=== PATIENT | male | born 1990 | race African-American/Black ===

== ENCOUNTER 2019-10-28 20:52 | Emergency (ER) | payer OTHER ==
[~2019-10-28] VITALS: Ht 158 cm; Wt 68.0 kg
[2019-10-28] MEDS ORDERED: ONDANSETRON HCL/PF 4 MG/2 ML VIAL ONE (22:19)
[2019-10-28] MEDS ORDERED: ACETAMINOPHEN ES 500 MG TABLET ONE (22:20)
[2019-10-28] MEDS ORDERED: MORPHINE SULFATE INJ 4 MG/ML DISP.SYRIN ONE (22:20)
--- NOTE | 2019-10-28 22:20 | NUR ---
PT CAME TO ER BED 10 FOR C/O FLANK PAIN. PT STATES THAT THERE IS PAIN IN BOTH HIS FLANK WHEN HE WALKS AND URINATES. AAOX4. NO SOB. BREATHING EVENLY AND UNLABORED. NOT IN ANY DISTRESS. CONNECTED TO THE MONITOR.
[2019-10-28 22:29] LABS: BASOPHILS % (AUTO) 0.4 % (0.0-2.0); EOSINOPHILS % (AUTO) 6.6 % (0.0-6.0); HEMATOCRIT 42 % (39-51); HEMOGLOBIN 14.2 g/dL (13.5-17.5); LYMPHOCYTES # (AUTO) 1.8 /CMM (0.8-4.8); LYMPHOCYTES % (AUTO) 26.8 % (20.0-44.0); MEAN CORPUSCULAR HGB CONC 34 g/dl (31.0-36.0); MEAN CORPUSCULAR VOLUME 90 fL (80-96); MONOCYTES # (AUTO) 0.7 /CMM (0.1-1.30); MONOCYTES % (AUTO) 10.1 % (2.0-12.0); NEUTROPHILS # (AUTO) 3.7 /CMM (1.8-8.9); NEUTROPHILS % (AUTO) 56.1 % (43.0-81.0); PLATELET COUNT (AUTO) 275 /CMM (150-450); RED BLOOD CELL COUNT(AUTO) 4.65 MIL/uL (4.5-6.0); WHITE BLOOD COUNT (AUTO) 6.5 K/uL (4.3-11.0)
[2019-10-28] MEDS ORDERED: ONDANSETRON HCL/PF 4 MG/2 ML VIAL IVP ONE (22:30)
[2019-10-28] MEDS ORDERED: MORPHINE SULFATE INJ 2 MG/ML DISP.SYRIN IV ONE (22:30)
[2019-10-28] MEDS ORDERED: IV NS 0.9% 1,000 ML BAG IV ONE (22:30)
[2019-10-28] MEDS ORDERED: ACETAMINOPHEN ES 500 MG TABLET PO ONE (22:30)
[2019-10-28 22:36] LABS: CALCIUM, SERUM 8.3 mg/dL (8.5-10.1); CREATININE 1.7 mg/dL (0.6-1.3); POTASSIUM 3.3 mmol/L (3.5-5.1)
[2019-10-28 22:38] LABS: APPEARANCE,URINE Clear (CLEAR); BILIRUBIN,URINE Negative (NEGATIVE); BLOOD, URINE Moderate Ery/uL (NEGATIVE); COLOR,URINE Yellow (YELLOW); KETONES,URINE Negative (NEGATIVE); LEUKOCYTE ESTERASE ,URINE Negative (NEGATIVE); NITRITE, URINE Negative (NEGATIVE); PROTEIN,URINE 100 mg/dl (NEGATIVE); UGLUCOSE Negative (NEGATIVE); UROBILINOGEN,URINE 0.2 EU/dL (0.2)
--- NOTE | 2019-10-28 22:38 | NUR ---
patient being sent to ct via [facility]
--- NOTE | 2019-10-28 22:48 | NUR ---
PATIENT RETURNED FROM CT.
[2019-10-28 22:53] LABS: BACTERIA,URINE Few /HPF (None Seen); RBC,URINE 21-50 /HPF (0-2); SQUAMOUS EPITHELIAL CELL,UR Rare /HPF (None Seen)
[2019-10-29] MEDS ORDERED: CEFTRIAXONE 1 G in IV D5W 50 ML IV ONE ×2
[2019-10-29] MEDS ORDERED: CEFTRIAXONE 1GM BAG (ER ONLY) 50 ML IV ONE (00:25)
--- NOTE | 2019-10-29 00:45 | NUR ---
ATTEMPTED TO DISCHARGE PT, PT REFUSE TO GET UP FOR DISCHARGE. WILL REATTEMPT TO D/C PT IN 15MIN.
--- NOTE | 2019-10-29 01:16 | NUR ---
PT REMAINS TO REFUSE TO GET UP FOR DISCHARGE. WILL REATTEMPT IN ANOTHER 15MIN.
--- NOTE | 2019-10-29 01:58 | NUR ---
IV removed. Catheter intact and site benign. Pressure and 4x4 applied to site. No bleeding noted. ambulatory with a steady gait noted. Patient discharged to home in stable condition. Written and verbal after care instructions given. Patient verbalizes understanding of instruction. pt aaox4 no acute distress noted, resp even and unlabored. advice pt not to drive or operate any machinery due to pt was given narcotic medicine. pt verbalize understanding.
[2019-10-29 01:59] VITALS: BP 124/62
[2019-10-29] MEDS ORDERED: diphenhydrAMINE HCL 50 MG/ML VIAL ONE (21:35)
[2019-10-29] MEDS ORDERED: HALOPERIDOL LACTATE INJ 5 MG/ML VIAL ONE (21:35)
[2019-10-29] MEDS ORDERED: LORAZEPAM INJ 2 MG/ML VIAL ONE (21:36)
== END 2019-10-29 02:00 | disposition home or self-care (01) ==
LOC: ER 21:00
DX: N39.0 Urinary tract infection, site not specified (principal)
CPT/HCPCS: 36415; 74176; 80048; 81001; 85025; 87086; 96365; 96375; 99284; J0696 ×2; J1200; J1630; J2060; J2270; J2405; J7030; J7060; 81000-TC

== ENCOUNTER 2019-11-15 16:24 | Emergency (ER) | payer OTHER ==
[~2019-11-15] VITALS: Ht 157.5 cm; Wt 63.5 kg
--- NOTE | 2019-11-15 16:29 | NUR ---
CAME IN FOR LOWER BACK PAIN X 2 DAYS, HEMATURIA NOTED TODAY. 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
--- NOTE | 2019-11-15 16:55 | NUR ---
HELADIO DRISCOLL AT BEDSIDE
[2019-11-15] MEDS ORDERED: DEXAMETHASONE SOD PHOSPHATE 4 MG/ML VIAL IM ONE (17:00)
[2019-11-15] MEDS ORDERED: KETOROLAC TROMETHAMINE INJ 60 MG/2 ML VIAL IM ONE (17:00)
[2019-11-15] MEDS ORDERED: DEXAMETHASONE SOD PHOSPHATE 10 MG/ML VIAL ONE (17:05)
[2019-11-15] MEDS ORDERED: KETOROLAC TROMETHAMINE INJ 30 MG/ML VIAL ONE (17:05)
--- NOTE | 2019-11-15 17:12 | NUR ---
GREASER HELPER AT BEDSIDE
[2019-11-15 17:16] LABS: BASOPHILS # (AUTO) 0.1 /CMM (0.0-0.2); BASOPHILS % (AUTO) 0.7 % (0.0-2.0); EOSINOPHILS % (AUTO) 2.3 % (0.0-6.0); HEMATOCRIT 43 % (39-51); HEMOGLOBIN 14.3 g/dL (13.5-17.5); LYMPHOCYTES # (AUTO) 1.4 /CMM (0.8-4.8); LYMPHOCYTES % (AUTO) 13.2 % (20.0-44.0); MEAN CORPUSCULAR HGB CONC 33 g/dl (31.0-36.0); MEAN CORPUSCULAR VOLUME 90 fL (80-96); MONOCYTES % (AUTO) 8.8 % (2.0-12.0); NEUTROPHILS # (AUTO) 8.1 /CMM (1.8-8.9); PLATELET COUNT (AUTO) 250 /CMM (150-450); RED BLOOD CELL COUNT(AUTO) 4.74 MIL/uL (4.5-6.0); WHITE BLOOD COUNT (AUTO) 10.8 K/uL (4.3-11.0)
[2019-11-15 17:17] LABS: APPEARANCE,URINE Slightly Cloudy (CLEAR); BILIRUBIN,URINE Negative (NEGATIVE); BLOOD, URINE Large Ery/uL (NEGATIVE); COLOR,URINE Yellow (YELLOW); KETONES,URINE Trace (NEGATIVE); LEUKOCYTE ESTERASE ,URINE Negative (NEGATIVE); NITRITE, URINE Negative (NEGATIVE); PROTEIN,URINE >=300 mg/dl (NEGATIVE); UGLUCOSE Negative (NEGATIVE)
[2019-11-15 17:24] LABS: CREATININE 1.4 mg/dL (0.6-1.3); POTASSIUM 4.2 mmol/L (3.5-5.1)
[2019-11-15 17:34] LABS: BACTERIA,URINE Rare /HPF (None Seen); RBC,URINE 21-50 /HPF (0-2); WBC,URINE NONE SEEN /HPF (0-3)
--- NOTE | 2019-11-15 18:42 | NUR ---
PATIENT STATES "I'M SUICIDAL WITH PLANS TO JUMP OFF TRAFFIC PASS". Addendum: 11/15/19 at 1908 by VIET PATIENT STATES "I'M SUICIDAL WITH PLANS TO RUN INTO TRAFFIC AND JUMP OFF AN I-PASS".
[2019-11-15 19:09] LABS: ACETAMINOPHEN < 10 ug/ml (10-30); ALANINE AMINOTRANSFERASE 26 U/L (12-78); ALBUMIN 3.6 g/dL (3.4-5.0); ALCOHOL, BLOOD < 3 mg/dL (0-0); ALKALINE PHOSPHATASE 68 U/L (46-116); ASPARTATE AMINOTRANSFERASE 24 U/L (15-37); BILIRUBIN,DIRECT 0.1 mg/dL (0.0-0.2); BILIRUBIN,TOTAL 0.6 mg/dL (0.2-1.0); SALICYLATE 1.3 mg/dL (2.8-20.0); TOTAL PROTEIN, SERUM 7.4 g/dL (6.4-8.2)
--- NOTE | 2019-11-15 19:25 | NUR ---
REPORT GIVEN TO DIEGO FRIEDMAN FOR [facility]
--- NOTE | 2019-11-15 19:57 | NUR ---
PATIENT IS RESTING COMFORTABLY IN BED 10. NOT IN ANY DISTRESS. CONNECTED TO MONITOR. SITTER NEAR BEDSIDE. CALL LIGHT WITHIN REACH.
--- NOTE | 2019-11-16 01:47 | NUR ---
PT ACCEPTED TO [facility] BY DR FRANCO. # FOR REPORT [phone]. UNIT 1
--- NOTE | 2019-11-16 02:20 | NUR ---
[facility]. ETA 30-60 MIN.
--- NOTE | 2019-11-16 02:36 | NUR ---
report given to dain mcintosh for dl.
--- NOTE | 2019-11-16 03:10 | NUR ---
REPORT GIVEN TO [facility] TRANSPORT TEAM FOR [facility]. AND TRANSFER.
[2019-11-16 03:11] VITALS: BP 124/64
== END 2019-11-16 03:12 ==
LOC: ER 16:26
DX: R80.9 Proteinuria, unspecified (principal); M54.16 Radiculopathy, lumbar region; R31.9 Hematuria, unspecified; F15.10 Other stimulant abuse, uncomplicated; F12.10 Cannabis abuse, uncomplicated; M54.5 Low back pain; F32.9 Major depressive disorder, single episode, unspecified; Z04.6 Encounter for general psychiatric examination, requested by authority; Z87.442 Personal history of urinary calculi
CPT/HCPCS: 36415; 72110; 76770; 80048; 80076; 80305; 80307; 80329; 81001; 85025; 96372 ×2; 99284; G0480; J1100; J1885; 81000-TC

== ENCOUNTER 2020-02-21 20:42 | Emergency (ER) | payer OTHER ==
[~2020-02-21] VITALS: Ht 157.5 cm; Wt 72.6 kg
--- NOTE | 2020-02-21 21:46 | NUR ---
BIBSELF C/O SUICIDAL IDEATION WITH PLAN TO OVERDOSE ON PILLS. PT DENIES HI AT THIS TIME. PT AAOX4. CALM AND COOPERATIVE. VITAL SIGNS STABLE. RESPIRATIONS EVEN AND UNLABORED. SKIN INTACT. AMBULATORY WITH STEADY GAIT. NO ACUTE DISTRESS NOTED AT THIS TIME. PT PLACED IN GOWN, BELONGINGS COLLECTED AND PLACED IN PATIENT LOCKER. SITTER AT BEDSIDE. WILL CONTINUE TO MONITOR
--- NOTE | 2020-02-21 21:49 | NUR ---
PT CAME TO THE ED FOR SI W A PLAN TO OVERDOSE ON DRUGS. DENIES HI. PT PLACED ON SUICIDE PRECAUTIONS. NO ACUTE DISTRESS NOTED. 1:1 SITTER AT BEDSIDE FOR SAFETY
--- NOTE | 2020-02-21 21:51 | NUR ---
URINE SENT TO LAB
[2020-02-21 22:27] LABS: BASOPHILS # (AUTO) 0.1 /CMM (0.0-0.2); BASOPHILS % (AUTO) 1.3 % (0.0-2.0); EOSINOPHILS % (AUTO) 2.4 % (0.0-6.0); HEMATOCRIT 40 % (39-51); HEMOGLOBIN 13.6 g/dL (13.5-17.5); LYMPHOCYTES # (AUTO) 2.4 /CMM (0.8-4.8); LYMPHOCYTES % (AUTO) 33.2 % (20.0-44.0); MEAN CORPUSCULAR HGB CONC 34 g/dl (31.0-36.0); MEAN CORPUSCULAR VOLUME 91 fL (80-96); MONOCYTES # (AUTO) 0.7 /CMM (0.1-1.30); MONOCYTES % (AUTO) 9.7 % (2.0-12.0); NEUTROPHILS # (AUTO) 3.9 /CMM (1.8-8.9); NEUTROPHILS % (AUTO) 53.4 % (43.0-81.0); PLATELET COUNT (AUTO) 240 /CMM (150-450); RED BLOOD CELL COUNT(AUTO) 4.41 MIL/uL (4.5-6.0); WHITE BLOOD COUNT (AUTO) 7.2 K/uL (4.3-11.0)
[2020-02-21 22:34] LABS: CALCIUM, SERUM 9.2 mg/dL (8.5-10.1); CREATININE 1.4 mg/dL (0.6-1.3); POTASSIUM 3.5 mmol/L (3.5-5.1)
[2020-02-21 22:40] LABS: ALBUMIN 3.5 g/dL (3.4-5.0); BILIRUBIN,DIRECT 0.1 mg/dL (0.0-0.2); BILIRUBIN,TOTAL 0.2 mg/dL (0.2-1.0); SALICYLATE 2.1 mg/dL (2.8-20.0); TOTAL PROTEIN, SERUM 6.9 g/dL (6.4-8.2)
[2020-02-21 23:05] LABS: APPEARANCE,URINE Clear (CLEAR); BILIRUBIN,URINE Negative (NEGATIVE); BLOOD, URINE Moderate Ery/uL (NEGATIVE); COLOR,URINE Yellow (YELLOW); KETONES,URINE Trace (NEGATIVE); LEUKOCYTE ESTERASE ,URINE Negative (NEGATIVE); NITRITE, URINE Negative (NEGATIVE); PROTEIN,URINE 100 mg/dl (NEGATIVE); UGLUCOSE Negative (NEGATIVE); UROBILINOGEN,URINE 0.2 EU/dL (0.2)
[2020-02-22 00:24] LABS: BACTERIA,URINE Rare /HPF (None Seen); RBC,URINE 51-80 /HPF (0-2); SQUAMOUS EPITHELIAL CELL,UR Rare /HPF (None Seen); WBC,URINE 0-2 /HPF (0-3)
--- NOTE | 2020-02-22 02:30 | NUR ---
PT RESTING COMFORTABLY IN BED. VITAL SIGNS STABLE. SITTER STILL AT BEDSIDE
--- NOTE | 2020-02-22 04:00 | NUR ---
LOCATION: [facility] Physician: DR FRANCO NUMBER FOR REPORT: [phone]. BLAKE
--- NOTE | 2020-02-22 04:03 | NUR ---
UNIT 2
--- NOTE | 2020-02-22 04:07 | NUR ---
Call the Car called for transport. ETA 0600 [facility] trip#[id number]
--- NOTE | 2020-02-22 04:08 | NUR ---
REPORT GIVEN TO ELDER LR
--- NOTE | 2020-02-22 05:42 | NUR ---
REPORT GIVEN TO [facility] FOR TRANSPORTATION [facility]
[2020-02-22 05:43] VITALS: BP 128/79
== END 2020-02-22 05:54 | disposition short-term general hospital (02) ==
LOC: ER 20:42
DX: R45.851 Suicidal ideations (principal); F32.9 Major depressive disorder, single episode, unspecified; F17.200 Nicotine dependence, unspecified, uncomplicated
CPT/HCPCS: 36415; 80048; 80076; 80305; 80307; 80329; 81001; 85025; 99285; G0480; 81000-TC

== ENCOUNTER 2020-04-01 18:42 | Emergency (ER) | payer OTHER ==
[~2020-04-01] VITALS: Ht 154.9 cm; Wt 61.2 kg
--- NOTE | 2020-04-01 18:45 | NUR ---
PT BIB SELF C/O SI "I WANT TO HANG MY SELF" PT IS AAOX4, NOT IN RESPIRATORY DISTRESS, V/S STABLE, KEPT RESTED AND COMFORTABLE, WILL CONTINUE TO MONITOR.
[2020-04-01 19:00] VITALS: BP 145/93
--- NOTE | 2020-04-01 19:00 | NUR ---
CALLED SECURITY FOR WANDING.
--- NOTE | 2020-04-01 19:04 | NUR ---
BELONGINGS REMOVED AT BEDSIDE AND PLACED IN LOCKER.
[2020-04-01 19:28] LABS: BASOPHILS # (AUTO) 0.1 /CMM (0.0-0.2); BASOPHILS % (AUTO) 1.3 % (0.0-2.0); EOSINOPHILS % (AUTO) 4.5 % (0.0-6.0); HEMATOCRIT 42 % (39-51); HEMOGLOBIN 14.5 g/dL (13.5-17.5); LYMPHOCYTES % (AUTO) 36.6 % (20.0-44.0); MEAN CORPUSCULAR HGB CONC 35 g/dl (31.0-36.0); MEAN CORPUSCULAR VOLUME 90 fL (80-96); MONOCYTES # (AUTO) 0.7 /CMM (0.1-1.30); MONOCYTES % (AUTO) 9.3 % (2.0-12.0); NEUTROPHILS # (AUTO) 3.9 /CMM (1.8-8.9); NEUTROPHILS % (AUTO) 48.3 % (43.0-81.0); PLATELET COUNT (AUTO) 224 /CMM (150-450); RED BLOOD CELL COUNT(AUTO) 4.67 MIL/uL (4.5-6.0); WHITE BLOOD COUNT (AUTO) 8.1 K/uL (4.3-11.0)
[2020-04-01 19:50] LABS: CALCIUM, SERUM 8.1 mg/dL (8.5-10.1); CARBON DIOXIDE 23 mmol/L (21-32); CHLORIDE 107 mmol/L (98-107); CREATININE 1.6 mg/dL (0.6-1.3); GLUCOSE 93 mg/dL (74-106); POTASSIUM 4.1 mmol/L (3.5-5.1); SODIUM SERUM 139 mmol/L (136-145); UREA NITROGEN, BLOOD 14 mg/dL (7-18)
[2020-04-01 19:50] LABS: APPEARANCE,URINE Clear (CLEAR); BILIRUBIN,URINE Negative (NEGATIVE); BLOOD, URINE Moderate Ery/uL (NEGATIVE); COLOR,URINE Yellow (YELLOW); KETONES,URINE Negative (NEGATIVE); LEUKOCYTE ESTERASE ,URINE Negative (NEGATIVE); NITRITE, URINE Negative (NEGATIVE); PROTEIN,URINE Negative (NEGATIVE); UGLUCOSE Negative (NEGATIVE)
[2020-04-01 19:54] LABS: ACETAMINOPHEN 2 ug/ml (10-30); ALANINE AMINOTRANSFERASE 21 U/L (12-78); ALCOHOL, BLOOD < 3 mg/dL (0-0); ALKALINE PHOSPHATASE 48 U/L (46-116); ASPARTATE AMINOTRANSFERASE 17 U/L (15-37); BILIRUBIN,TOTAL 0.2 mg/dL (0.2-1.0); TOTAL PROTEIN, SERUM 5.7 g/dL (6.4-8.2)
[2020-04-01 20:03] LABS: SALICYLATE 1.4 mg/dL (2.8-20.0)
[2020-04-01 20:05] LABS: BACTERIA,URINE Rare /HPF (None Seen); SQUAMOUS EPITHELIAL CELL,UR Few /HPF (None Seen); WBC,URINE NONE SEEN /HPF (0-3)
[2020-04-01] MEDS ORDERED: IV NS 0.9% 1,000 ML BAG IV ONE (20:30)
[2020-04-01] MEDS ORDERED: ACETAMINOPHEN 325 MG TABLET PO ONE (21:30)
[2020-04-01] MEDS ORDERED: ACETAMINOPHEN ES 500 MG TABLET ONE (21:41)
--- NOTE | 2020-04-01 22:24 | NUR ---
PT ACCEPTED TO [facility] BY DR SAM. UNIT 2. # FOR REPORT [phone]
--- NOTE | 2020-04-01 23:44 | NUR ---
CALLED [id number], WILL CALL BACK WITH RES#
--- NOTE | 2020-04-01 23:49 | NUR ---
RES #[id number] ETA 0045 [facility]
--- NOTE | 2020-04-02 00:42 | NUR ---
REPORT GIVEN TO ELDER XIAO
--- NOTE | 2020-04-02 02:13 | NUR ---
REPORT GIVEN TO EMS. PT STABLE FOR TRANSFER
== END 2020-04-02 02:16 ==
LOC: ER 18:43
DX: R45.851 Suicidal ideations (principal); N28.9 Disorder of kidney and ureter, unspecified; F12.10 Cannabis abuse, uncomplicated; F32.9 Major depressive disorder, single episode, unspecified; F41.9 Anxiety disorder, unspecified
CPT/HCPCS: 36415; 80048; 80076; 80305; 80307; 80329; 81001; 85025; 99285; G0480; 81000-TC

== ENCOUNTER 2020-04-12 17:50 | Emergency (ER) | payer OTHER ==
[~2020-04-12] VITALS: Ht 157.5 cm; Wt 72.6 kg
[2020-04-12] MEDS ORDERED: LORAZEPAM 1 MG TABLET PO ONE (20:00)
[2020-04-12] MEDS ORDERED: OLANZAPINE 5 MG TABLET PO ONE (20:00)
[2020-04-12 20:07] LABS: BASOPHILS # (AUTO) 0.1 /CMM (0.0-0.2); BASOPHILS % (AUTO) 0.6 % (0.0-2.0); EOSINOPHILS % (AUTO) 2.5 % (0.0-6.0); HEMATOCRIT 47 % (39-51); HEMOGLOBIN 16.1 g/dL (13.5-17.5); LYMPHOCYTES # (AUTO) 2.4 /CMM (0.8-4.8); LYMPHOCYTES % (AUTO) 25.6 % (20.0-44.0); MEAN CORPUSCULAR HGB CONC 34 g/dl (31.0-36.0); MEAN CORPUSCULAR VOLUME 90 fL (80-96); MONOCYTES # (AUTO) 0.8 /CMM (0.1-1.30); NEUTROPHILS % (AUTO) 63.3 % (43.0-81.0); PLATELET COUNT (AUTO) 261 /CMM (150-450); RED BLOOD CELL COUNT(AUTO) 5.24 MIL/uL (4.5-6.0); WHITE BLOOD COUNT (AUTO) 9.5 K/uL (4.3-11.0)
[2020-04-12 20:15] LABS: APPEARANCE,URINE Slightly Cloudy (CLEAR); BILIRUBIN,URINE Negative (NEGATIVE); BLOOD, URINE Moderate Ery/uL (NEGATIVE); COLOR,URINE Light yellow (YELLOW); KETONES,URINE Negative (NEGATIVE); LEUKOCYTE ESTERASE ,URINE Negative (NEGATIVE); NITRITE, URINE Negative (NEGATIVE); PROTEIN,URINE 100 mg/dl (NEGATIVE); UGLUCOSE Negative (NEGATIVE); UROBILINOGEN,URINE 0.2 EU/dL (0.2)
[2020-04-12 20:20] LABS: RBC,URINE 21-50 /HPF (0-2)
[2020-04-12 20:21] LABS: BACTERIA,URINE Rare /HPF (None Seen); SQUAMOUS EPITHELIAL CELL,UR Rare /HPF (None Seen); WBC,URINE 0-2 /HPF (0-3)
--- NOTE | 2020-04-12 20:30 | NUR ---
PT CAME TO THE ER SI W/ A PLAN TO OVERDOSE HIMSELF. DENIES HI. PT AAOX4, VSS, RESPIRATIONS EVEN AND UNLABORED ON RA W/ NAD NOTED. PT CHANGED INTO GOWN, BELONGINGS TO LOCKER, PLACED ON SUICIDE PRECAUTIONS. 1:1 SITTER AT BEDSIDE FOR SAFETY.
[2020-04-12] MEDS ORDERED: OLANZAPINE 5 MG TABLET ONE (20:35)
[2020-04-12] MEDS ORDERED: LORAZEPAM 1 MG TABLET ONE (20:35)
[2020-04-12 21:13] LABS: CALCIUM, SERUM 9.1 mg/dL (8.5-10.1); CARBON DIOXIDE 25 mmol/L (21-32); CHLORIDE 106 mmol/L (98-107); CREATININE 1.4 mg/dL (0.6-1.3); GLUCOSE 93 mg/dL (74-106); POTASSIUM 4.1 mmol/L (3.5-5.1); SODIUM SERUM 140 mmol/L (136-145); UREA NITROGEN, BLOOD 16 mg/dL (7-18)
[2020-04-12 21:18] LABS: ALANINE AMINOTRANSFERASE 27 U/L (12-78); ALBUMIN 3.8 g/dL (3.4-5.0); ALCOHOL, BLOOD < 3 mg/dL (0-0); ALKALINE PHOSPHATASE 54 U/L (46-116); ASPARTATE AMINOTRANSFERASE 20 U/L (15-37); BILIRUBIN,DIRECT 0.1 mg/dL (0.0-0.2); BILIRUBIN,TOTAL 0.3 mg/dL (0.2-1.0); TOTAL PROTEIN, SERUM 7.1 g/dL (6.4-8.2)
[2020-04-12 21:19] LABS: ACETAMINOPHEN < 10 ug/ml (10-30); SALICYLATE 1.8 mg/dL (2.8-20.0)
--- NOTE | 2020-04-12 21:57 | NUR ---
CLINICAL INFORMATION FAXED TO [facility]
--- NOTE | 2020-04-13 00:10 | NUR ---
PER ANGELINA FROM COUNTS INCLUDE 234 BEDS AT THE [facility] INTAKE, CLINICAL PACKET STILL BEING REVIEWED AT [facility]. NO BEDS AVAILABLE AT [facility]
--- NOTE | 2020-04-13 01:05 | NUR ---
PT RESTING COMFORTABLY IN BED.VSS. NO ACUTE DISTRESS NOTED. WILLC CONTINUE TO MONITOR
--- NOTE | 2020-04-13 03:40 | NUR ---
PT RESTING COMFORTABLY IN BED.VSS. NO ACUTE DISTRESS NOTED. WILLC CONTINUE TO MONITOR
--- NOTE | 2020-04-13 04:03 | NUR ---
PER ANGELINA FROM [facility] INTAKE, PT WILL BE ACCEPTED TO [facility] AFTER DISCHARGES. WILL CALL BACK WITH TRANSFER INFORMATION
--- NOTE | 2020-04-13 05:30 | NUR ---
PER ANGELINA; ACCEPTED [facility], WILL CALL BACK FOR INFO
--- NOTE | 2020-04-13 05:56 | NUR ---
PT RESTING COMFORTABLY IN BED. VSS. NO ACUTE DISTRESS NOTED. WILL CONTINUE TO MONITOR. SITTER AT BEDSIDE FOR SAFETY
--- NOTE | 2020-04-13 07:22 | NUR ---
RECEIVED PATIENT IN BED ASLEEP, EASILY AROUSABLE BY VOICE. HOOKED TO MONITOR, VSS. SITTER AT BEDSIDE, WILL CONTINUE TO MONITOR
--- NOTE | 2020-04-13 09:42 | NUR ---
RECEIVED PATIENT IN BED ASLEEP, TUCKED IN BLANKET. EASILY AROUSABLE BY VOICE. HOOKED TO MONITOR, VSS. SITTER AT BEDSIDE, WILL CONTINUE TO MONITOR
--- NOTE | 2020-04-13 11:52 | NUR ---
OFFERED FOOD TRAY. PATIENT REFUSED.
--- NOTE | 2020-04-13 12:28 | NUR ---
PROVIDED W LUNCH TRAY. TOLERATING PO WELL.
--- NOTE | 2020-04-13 14:52 | NUR ---
PATIENT IN BED ASLEEP, EASILY AROUSABLE BY VOICE. HOOKED TO MONITOR, VSS. NOT IN DISTRESS. WILL CONTINUE TO MONITOR ACCORDINGLY. SITTER AT BEDSIDE.
--- NOTE | 2020-04-13 16:41 | NUR ---
PATIENT IN BED ASLEEP, TUCKED IN BLANKET. EASILY AROUSABLE BY VOICE. HOOKED TO MONITOR, VSS. NOT IN DISTRESS. WILL CONTINUE TO MONITOR ACCORDINGLY. SITTER AT BEDSIDE.
--- NOTE | 2020-04-13 18:32 | NUR ---
PATIENT IN BED ASLEEP, EASILY AROUSABLE BY VOICE. HOOKED TO MONITOR, VSS. NOT IN DISTRESS. WILL CONTINUE TO MONITOR ACCORDINGLY. SITTER AT BEDSIDE.
--- NOTE | 2020-04-13 20:46 | NUR ---
SPOKE WITH LAUREN FROM [facility], STILL NO BEDS AVAILABLE AT THIS TIME
--- NOTE | 2020-04-13 21:56 | NUR ---
SPOKE WITH BRENDA FROM [facility], NO BEDS AVAILABLE AT THIS TIME
--- NOTE | 2020-04-13 21:57 | NUR ---
CALLED [facility], NO BEDS AVAILABLE AT THIS TIME
--- NOTE | 2020-04-13 22:05 | NUR ---
PT RESTING COMFORTABLY IN BED. VITAL SIGNS STABLE. SITTER AT BEDSIDE. WILL CONTINUE TO MONITOR
--- NOTE | 2020-04-14 00:07 | NUR ---
SPOKE WITH FREDA FROM [facility], STILL NO BEDS AVAILABLE AT THIS TIME
--- NOTE | 2020-04-14 01:14 | NUR ---
PT RESTING COMFORTABLY IN BED. VITAL SIGNS STABLE. SITTER AT BEDSIDE. WILL CONTINUE TO MONITOR
--- NOTE | 2020-04-14 04:06 | NUR ---
PATIENT IS ASLEEP. EASILY AROUSABLE THROUGH TACTILE AND VERBAL STIMULI. BREATHING EVENLY AND UNLABORED ON ROOM AIR. SITTER AT BEDSIDE. WILL CONTINUE TO MONITOR.
--- NOTE | 2020-04-14 05:39 | NUR ---
PT RESTING COMFORTABLY IN BED. VITAL SIGNS STABLE. SITTER AT BEDSIDE. WILL CONTINUE TO MONITOR
--- NOTE | 2020-04-14 06:41 | NUR ---
PT ACCEPTED TO [facility] ACCEPTING MD: DR. SAM NUMBER FOR REPORT: [phone] EXT [phone] ROOM ASSIGNMENT: [id number]
--- NOTE | 2020-04-14 06:54 | NUR ---
[facility] ETA 0528
--- NOTE | 2020-04-14 07:19 | NUR ---
REPORT GIVEN TO ELDER STALLWORTH FROM [facility] FOR [facility]
--- NOTE | 2020-04-14 07:24 | NUR ---
REPORT GIVEN TO [facility] UNIT 41 FOR TRANSPORTATION [facility]
[2020-04-14 07:27] VITALS: BP 60/134
--- NOTE | 2020-04-14 07:30 | NUR ---
PT REFUSING TO GO TO [facility]. AWARE
--- NOTE | 2020-04-14 07:39 | NUR ---
INFORMED [place] FROM [facility] PT REFUSED TRANSFER
--- NOTE | 2020-04-14 07:39 | NUR ---
Patient discharged to home in stable condition. Written and verbal after care instructions given. Patient verbalizes understanding of instruction.Pt ambulatory with a steady gait
== END 2020-04-14 07:41 | disposition home or self-care (01) ==
LOC: ER 17:56
DX: R45.851 Suicidal ideations (principal); R31.9 Hematuria, unspecified; F12.90 Cannabis use, unspecified, uncomplicated; F32.9 Major depressive disorder, single episode, unspecified; F41.9 Anxiety disorder, unspecified; F17.200 Nicotine dependence, unspecified, uncomplicated
CPT/HCPCS: 36415; 80048; 80076; 80305; 80307; 80329; 81001; 85025; 99285; G0480; 81000-TC

== ENCOUNTER 2020-04-21 14:23 | Emergency (ER) | payer OTHER ==
[~2020-04-21] VITALS: Ht 157.5 cm; Wt 72.6 kg
[2020-04-21 14:54] LABS: BASOPHILS # (AUTO) 0.1 /CMM (0.0-0.2); EOSINOPHILS % (AUTO) 4.5 % (0.0-6.0); HEMATOCRIT 46 % (39-51); HEMOGLOBIN 15.7 g/dL (13.5-17.5); LYMPHOCYTES # (AUTO) 2.3 /CMM (0.8-4.8); LYMPHOCYTES % (AUTO) 32.8 % (20.0-44.0); MEAN CORPUSCULAR HGB CONC 34 g/dl (31.0-36.0); MEAN CORPUSCULAR VOLUME 89 fL (80-96); MONOCYTES # (AUTO) 0.7 /CMM (0.1-1.30); MONOCYTES % (AUTO) 10.1 % (2.0-12.0); NEUTROPHILS # (AUTO) 3.7 /CMM (1.8-8.9); NEUTROPHILS % (AUTO) 51.6 % (43.0-81.0); PLATELET COUNT (AUTO) 246 /CMM (150-450); RED BLOOD CELL COUNT(AUTO) 5.15 MIL/uL (4.5-6.0); WHITE BLOOD COUNT (AUTO) 7.1 K/uL (4.3-11.0)
[2020-04-21 15:01] LABS: CALCIUM, SERUM 8.9 mg/dL (8.5-10.1); CARBON DIOXIDE 22 mmol/L (21-32); CHLORIDE 105 mmol/L (98-107); CREATININE 1.5 mg/dL (0.6-1.3); GLUCOSE 87 mg/dL (74-106); SODIUM SERUM 136 mmol/L (136-145); UREA NITROGEN, BLOOD 15 mg/dL (7-18)
[2020-04-21 15:06] LABS: ALANINE AMINOTRANSFERASE 24 U/L (12-78); ALBUMIN 3.8 g/dL (3.4-5.0); ALCOHOL, BLOOD < 3 mg/dL (0-0); ALKALINE PHOSPHATASE 61 U/L (46-116); ASPARTATE AMINOTRANSFERASE 22 U/L (15-37); BILIRUBIN,DIRECT 0.1 mg/dL (0.0-0.2); BILIRUBIN,TOTAL 0.5 mg/dL (0.2-1.0); SALICYLATE 3.8 mg/dL (2.8-20.0); TOTAL PROTEIN, SERUM 7.4 g/dL (6.4-8.2)
[2020-04-21 15:09] LABS: ACETAMINOPHEN < 2 ug/ml (10-30)
[2020-04-21] MEDS ORDERED: diphenhydrAMINE HCL 50 MG CAPSULE ONE (15:28)
[2020-04-21 15:29] LABS: APPEARANCE,URINE HAZY (CLEAR); BILIRUBIN,URINE Negative (NEGATIVE); BLOOD, URINE Large Ery/uL (NEGATIVE); COLOR,URINE Yellow (YELLOW); KETONES,URINE Negative (NEGATIVE); LEUKOCYTE ESTERASE ,URINE Negative (NEGATIVE); NITRITE, URINE Negative (NEGATIVE); PH,URINE 5.5 (5.0-8.0); PROTEIN,URINE >=300 mg/dl (NEGATIVE); UGLUCOSE Negative (NEGATIVE); UROBILINOGEN,URINE 0.2 EU/dL (0.2)
[2020-04-21] MEDS ORDERED: diphenhydrAMINE HCL 25 MG CAPSULE PO ONE (15:30)
--- NOTE | 2020-04-21 15:31 | NUR ---
BIBS TO ER BED 15. WALKED IN TO ER. AAOX4. NOT IN REPS DISTRES. AMBULATORY. CAME IN FOR SUICIDAL IDEATION WITH GEN TO OD ON PILLS. PER PT HE HASNT BEEN SLEEPING FOR THE PAST 3 DAYS AND ITS CAUSING HIM TO HAVE THOUGHT OF HURTING HIMSELF. PT WAS STRIPPED OF CLOTHING, VISUALLY INSPECTED GOWNED AND ALL BELONGINGS PLACED IN LOCKER LOCATED IN THE UTILITY ROOM. WAS AT THE BEDSIDE FOR EVAL. URINE COLLECTED AND SENT TO LAB. BLOOD DRAWN. PROVIDED WITH FOOD.
--- NOTE | 2020-04-21 15:34 | NUR ---
1:1 SITTER AT BEDSIDE W/ CONSTANT VISUAL CHECK
[2020-04-21 15:38] LABS: RBC,URINE 21-50 /HPF (0-2); SQUAMOUS EPITHELIAL CELL,UR Few /HPF (None Seen); WBC,URINE 0-2 /HPF (0-3)
[2020-04-21 15:39] LABS: BACTERIA,URINE None seen /HPF (None Seen)
--- NOTE | 2020-04-21 16:38 | NUR ---
CALLED CESAR MANAGER CALL FOR PT EVAL. STATED TO CALL NEXT SHIFT CLINICIAN. WILL CALL JOSELUIS AFTER 1700.
--- NOTE | 2020-04-21 18:09 | NUR ---
CALLED [facility]. ETA 1 HOUR.
--- NOTE | 2020-04-21 19:51 | NUR ---
JOSELUIS GAY RN ZIPPER SETTER CHAINSTITCH AT BEDSIDE TO RICKY PT.
--- NOTE | 2020-04-21 20:17 | NUR ---
RD LANIER IS REVIEWING CLINICALS.
--- NOTE | 2020-04-21 20:59 | NUR ---
scvn unit2 [id number]
--- NOTE | 2020-04-21 21:15 | NUR ---
called [facility] [id number]
--- NOTE | 2020-04-21 21:26 | NUR ---
[facility] [phone]
--- NOTE | 2020-04-21 21:53 | NUR ---
REPORT GIVEN TO LANCE FRIEDMAN AT [facility] FOR [facility].
[2020-04-21 22:53] VITALS: BP 131/68
--- NOTE | 2020-04-21 22:53 | NUR ---
TRANSPORT AT BEDSIDE REPORT GIVEN TO EMT.
== END 2020-04-21 22:53 ==
LOC: ER 14:28
DX: R45.851 Suicidal ideations (principal); N28.9 Disorder of kidney and ureter, unspecified; F12.10 Cannabis abuse, uncomplicated; F32.9 Major depressive disorder, single episode, unspecified; F41.9 Anxiety disorder, unspecified
CPT/HCPCS: 36415; 80048; 80076; 80305; 80307; 80329; 81001; 85025; 99285; G0480; Q0163; 81000-TC

== ENCOUNTER 2020-04-29 13:03 | Emergency (ER) | payer OTHER ==
[~2020-04-29] VITALS: Ht 157.5 cm; Wt 72.6 kg
--- NOTE | 2020-04-29 13:05 | NUR ---
PT BIB SELF C/O SI I WANT TO OVERDOSE MY SELF, PT IS AAOX4, NOT IN RESPIRATORY DISTRESS, V/S STABLE, KEPT RESTED AND COMFORTABLE, I WILL CONTINUE TO MONITOR.
--- NOTE | 2020-04-29 13:22 | NUR ---
PT SEEN AND EXAMINED BY .
--- NOTE | 2020-04-29 13:25 | NUR ---
URINE SPECIMEN COLLECTED AND SENT TO LAB.
--- NOTE | 2020-04-29 13:45 | NUR ---
ER PHLEB AT BEDSIDE FOR BLOOD DRAW.
[2020-04-29 13:49] LABS: BASOPHILS # (AUTO) 0.1 /CMM (0.0-0.2); EOSINOPHILS % (AUTO) 3.7 % (0.0-6.0); HEMATOCRIT 44 % (39-51); HEMOGLOBIN 14.8 g/dL (13.5-17.5); LYMPHOCYTES # (AUTO) 2.2 /CMM (0.8-4.8); LYMPHOCYTES % (AUTO) 35.9 % (20.0-44.0); MEAN CORPUSCULAR HGB CONC 34 g/dl (31.0-36.0); MEAN CORPUSCULAR VOLUME 90 fL (80-96); MONOCYTES # (AUTO) 0.7 /CMM (0.1-1.30); MONOCYTES % (AUTO) 12.1 % (2.0-12.0); NEUTROPHILS # (AUTO) 2.9 /CMM (1.8-8.9); NEUTROPHILS % (AUTO) 47.3 % (43.0-81.0); PLATELET COUNT (AUTO) 203 /CMM (150-450); RED BLOOD CELL COUNT(AUTO) 4.88 MIL/uL (4.5-6.0); WHITE BLOOD COUNT (AUTO) 6.1 K/uL (4.3-11.0)
[2020-04-29 13:59] LABS: CALCIUM, SERUM 8.5 mg/dL (8.5-10.1); CARBON DIOXIDE 28 mmol/L (21-32); CHLORIDE 106 mmol/L (98-107); CREATININE 1.4 mg/dL (0.6-1.3); GLUCOSE 92 mg/dL (74-106); POTASSIUM 3.9 mmol/L (3.5-5.1); SODIUM SERUM 140 mmol/L (136-145); UREA NITROGEN, BLOOD 14 mg/dL (7-18)
[2020-04-29 14:05] LABS: ACETAMINOPHEN 0 ug/ml (10-30); ALANINE AMINOTRANSFERASE 23 U/L (12-78); ALBUMIN 3.7 g/dL (3.4-5.0); ALCOHOL, BLOOD < 3 mg/dL (0-0); ALKALINE PHOSPHATASE 50 U/L (46-116); ASPARTATE AMINOTRANSFERASE 22 U/L (15-37); BILIRUBIN,DIRECT 0.2 mg/dL (0.0-0.2); BILIRUBIN,TOTAL 0.8 mg/dL (0.2-1.0); SALICYLATE 0.9 mg/dL (2.8-20.0); TOTAL PROTEIN, SERUM 6.7 g/dL (6.4-8.2)
--- NOTE | 2020-04-29 15:34 | NUR ---
SW CONSULT: Flexboard Operator reviewed the client's chart before consult. Flexboard Operator conducted a social work consult at bedside with the patient to address the patient's suicidal ideation. Pt reported his is currently residing at a shared living located in [address] [place] [address]. Pt reported he is currently experiencing suicidal ideation and has a plan to "overdose on drugs." Pt reported he would overdose on "any" drugs he could access. Pt reported the thoughts of hurting himself stated approximately two days ago and have been sudden and intrusive. Pt reported he was hospitalized at [facility] approximately one year ago. Pt reported a diagnosis of depression and anxiety. Pt reported he is on a psychotropic medication regimen, which includes Wellbutrin and Seroquel. Pt reported he does not have a treating psychiatrist or therapist. When asked where he receives his psychotropic medications, pt reported he receives them from [facility]. Pt reported he feels as if his psychotropics are effective, but "not right now." Pt denied any use of alcohol and reported an intermittent history of cocaine use, last use "months ago." Pt reported he currently receives GR and food stamps. Flexboard Operator provided [facility] resources and Homeless Resources Related to COVID-19. Pt signed Homeless Waiver; filled in chart. Flexboard Operator inquired about voluntary hospitalization at [facility]; pt is agreeable. Flexboard Operator contacted [facility] Intake staff, Tracy ([phone]) to initiate a referral. Tracy instructed Flexboard Operator to fax clinicals over to [phone] once all necessary documents (toxicology/labs, medical clearance documentation, face sheet) are gathered. Flexboard Operator provided active listening and emotional support to the patient.
--- NOTE | 2020-04-29 16:23 | NUR ---
SW NOTE: Social Service Agency Director faxed intake referral paperwork to [facility] ([phone]) after consulting with [facility] staff, [place]. Social Service Agency Director endorsed this information to OYSTERMANBrandin.
[2020-04-29] MEDS ORDERED: IBUPROFEN 600 MG TABLET PO ONE ×2 (16:30)
--- NOTE | 2020-04-29 17:21 | NUR ---
ASSESSED PT ON BED AWAKE AND ALERT, NOT IN RESPIRATORY DISTRESS, V/S STABLE, KEPT RESTED AND COMFORTABLE, WILL CONTINUE TO MONITOR. SITTER AT BEDSIDE.
--- NOTE | 2020-04-29 18:50 | NUR ---
ACCEPTED BY ODELL KIMBROUGH/SABI TO [facility], UNIT 2,REPORT TO [phone] PER LALITA
--- NOTE | 2020-04-29 19:20 | NUR ---
[facility] RES#[id number]
--- NOTE | 2020-04-29 19:26 | NUR ---
REPORT RECEIVED FROM NORRIS GREENWOOD RN FOR [facility]
--- NOTE | 2020-04-29 19:28 | NUR ---
[facility] ETA 2030
[2020-04-29 20:43] VITALS: BP 121/87
--- NOTE | 2020-04-29 20:44 | NUR ---
REPORT GIVEN TO ELDER ALONSO IAVN
--- NOTE | 2020-04-29 21:09 | NUR ---
REPORT GIVEN TO EMS FOR TRANSFER
== END 2020-04-29 21:39 ==
LOC: ER 13:03
DX: S01.01XA Laceration without foreign body of scalp, initial encounter (principal); R45.851 Suicidal ideations; F32.9 Major depressive disorder, single episode, unspecified; F12.20 Cannabis dependence, uncomplicated; F41.9 Anxiety disorder, unspecified; F17.200 Nicotine dependence, unspecified, uncomplicated; W19.XXXA Unspecified fall, initial encounter; Y93.89 Activity, other specified; Y92.89 Other specified places as the place of occurrence of the external cause; Y99.8 Other external cause status
CPT/HCPCS: 36415; 80048; 80076; 80305; 80307; 80329; 85025; 99285; G0480

== ENCOUNTER 2020-05-15 09:08 | Emergency (ER) | payer OTHER ==
[~2020-05-15] VITALS: Ht 157.5 cm; Wt 68.0 kg
--- NOTE | 2020-05-15 09:14 | NUR ---
came in feeling depressed, SI w/ plan to overdose on pills, to er bed 11, hooked to monitor, changed to hosp gown, security at bedside for wanding. aao x 4, breathing even and unlabored, suicidal precautions applied. sitter at bedside for safety.
--- NOTE | 2020-05-15 09:15 | NUR ---
DR Malone AT BEDSIDE
--- NOTE | 2020-05-15 09:30 | NUR ---
URINE SPECIMEN COLLECTED AND SENT TO LAB.
[2020-05-15 09:33] LABS: BILIRUBIN,URINE Negative (NEGATIVE); BLOOD, URINE Moderate Ery/uL (NEGATIVE); COLOR,URINE Yellow (YELLOW); KETONES,URINE Negative (NEGATIVE); LEUKOCYTE ESTERASE ,URINE Negative (NEGATIVE); NITRITE, URINE Negative (NEGATIVE); PROTEIN,URINE 100 mg/dl (NEGATIVE); UGLUCOSE Negative (NEGATIVE); UROBILINOGEN,URINE 0.2 EU/dL (0.2)
[2020-05-15 09:39] LABS: APPEARANCE,URINE SLIGHTLY HAZY (CLEAR)
[2020-05-15 09:43] LABS: BACTERIA,URINE None seen /HPF (None Seen); RBC,URINE 15-20 /HPF (0-2); SQUAMOUS EPITHELIAL CELL,UR Few /HPF (None Seen)
[2020-05-15 09:44] LABS: BASOPHILS # (AUTO) 0.1 /CMM (0.0-0.2); BASOPHILS % (AUTO) 1.3 % (0.0-2.0); HEMATOCRIT 44 % (39-51); HEMOGLOBIN 15.3 g/dL (13.5-17.5); LYMPHOCYTES # (AUTO) 1.4 /CMM (0.8-4.8); LYMPHOCYTES % (AUTO) 22.4 % (20.0-44.0); MEAN CORPUSCULAR HGB CONC 35 g/dl (31.0-36.0); MEAN CORPUSCULAR VOLUME 90 fL (80-96); MONOCYTES # (AUTO) 0.5 /CMM (0.1-1.30); MONOCYTES % (AUTO) 8.6 % (2.0-12.0); NEUTROPHILS # (AUTO) 4.2 /CMM (1.8-8.9); NEUTROPHILS % (AUTO) 64.7 % (43.0-81.0); PLATELET COUNT (AUTO) 273 /CMM (150-450); RED BLOOD CELL COUNT(AUTO) 4.88 MIL/uL (4.5-6.0); WHITE BLOOD COUNT (AUTO) 6.4 K/uL (4.3-11.0)
[2020-05-15 09:50] LABS: CALCIUM, SERUM 9.1 mg/dL (8.5-10.1); CARBON DIOXIDE 26 mmol/L (21-32); CHLORIDE 105 mmol/L (98-107); CREATININE 1.7 mg/dL (0.6-1.3); GLUCOSE 97 mg/dL (74-106); POTASSIUM 3.9 mmol/L (3.5-5.1); SODIUM SERUM 140 mmol/L (136-145); UREA NITROGEN, BLOOD 13 mg/dL (7-18)
[2020-05-15] MEDS ORDERED: OLANZAPINE 10 MG VIAL IM ONE (10:00)
[2020-05-15 10:03] LABS: ACETAMINOPHEN < 2 ug/ml (10-30); ALANINE AMINOTRANSFERASE 26 U/L (12-78); ALBUMIN 3.7 g/dL (3.4-5.0); ALCOHOL, BLOOD 16 mg/dL (0-0); ALKALINE PHOSPHATASE 61 U/L (46-116); ASPARTATE AMINOTRANSFERASE 19 U/L (15-37); BILIRUBIN,DIRECT 0.1 mg/dL (0.0-0.2); BILIRUBIN,TOTAL 0.2 mg/dL (0.2-1.0); TOTAL PROTEIN, SERUM 7.3 g/dL (6.4-8.2)
--- NOTE | 2020-05-15 11:55 | NUR ---
CLINICALS FAXED TO [facility].
--- NOTE | 2020-05-15 12:30 | NUR ---
[facility] CALLED PT CLINICALS UNDER REVIEW.
--- NOTE | 2020-05-15 14:26 | NUR ---
LUNCH TRAY PROVIDED, TOLERATED PO WELL.
--- NOTE | 2020-05-15 15:47 | NUR ---
GOT A CALL FROM [facility]. PT IS ACCEPTED AT [place] BUT WILL PROVIDE INFORMATION ONCE NURSING REPORT IS GIVEN. NUMBER FOR REPORT [phone].
--- NOTE | 2020-05-15 15:53 | NUR ---
REPORT GIVEN TO BALTAZAR FRIEDMAN OF [facility]
--- NOTE | 2020-05-15 15:57 | NUR ---
[id number]
--- NOTE | 2020-05-15 17:34 | NUR ---
Picked up by [facility] Unit 715 in stable condition. Clinicals given to emt to be given to facility. Patient will be brought to [facility]. All belongings returned to patient
[2020-05-15 17:36] VITALS: BP 150/95
== END 2020-05-15 17:37 ==
LOC: ER 09:10
DX: R45.851 Suicidal ideations (principal); F32.9 Major depressive disorder, single episode, unspecified; F41.9 Anxiety disorder, unspecified; F17.200 Nicotine dependence, unspecified, uncomplicated
CPT/HCPCS: 36415; 80048; 80076; 80305; 80307; 80329; 81001; 85025; 99285; G0480; 81000-TC

== ENCOUNTER 2020-05-22 13:52 | Emergency (ER) | payer OTHER ==
[~2020-05-22] VITALS: Ht 157.5 cm; Wt 68.9 kg
--- NOTE | 2020-05-22 13:52 | NUR ---
PT BIB SELF C/O SI "I'M FEELING SUICIDAL BY OVERDOSING ON MEDS" PT IS AAOX4, NOT IN RESPIRATORY DISTRESS, V/S STABLE, KEPT RESTED AND COMFORTABLE. WILL CONTINUE TO MONITOR.
--- NOTE | 2020-05-22 14:30 | NUR ---
URINE SPECIMEN COLLECTED AND SENT TO LAB.
--- NOTE | 2020-05-22 14:40 | NUR ---
ER PHLEB AT BEDSIDE FOR BLOOD DRAW.
[2020-05-22 14:44] LABS: APPEARANCE,URINE Clear (CLEAR); BILIRUBIN,URINE Negative (NEGATIVE); BLOOD, URINE Large Ery/uL (NEGATIVE); COLOR,URINE Yellow (YELLOW); KETONES,URINE Negative (NEGATIVE); LEUKOCYTE ESTERASE ,URINE Negative (NEGATIVE); NITRITE, URINE Negative (NEGATIVE); PROTEIN,URINE 100 mg/dl (NEGATIVE); UGLUCOSE Negative (NEGATIVE); WBC,URINE 0-2 /HPF (0-3)
[2020-05-22 14:45] LABS: BACTERIA,URINE Few /HPF (None Seen); SQUAMOUS EPITHELIAL CELL,UR Rare /HPF (None Seen)
[2020-05-22 14:56] LABS: BASOPHILS # (AUTO) 0.1 /CMM (0.0-0.2); BASOPHILS % (AUTO) 0.8 % (0.0-2.0); EOSINOPHILS % (AUTO) 1.6 % (0.0-6.0); HEMATOCRIT 43 % (39-51); HEMOGLOBIN 14.7 g/dL (13.5-17.5); LYMPHOCYTES # (AUTO) 2.5 /CMM (0.8-4.8); LYMPHOCYTES % (AUTO) 29.7 % (20.0-44.0); MEAN CORPUSCULAR HGB CONC 35 g/dl (31.0-36.0); MEAN CORPUSCULAR VOLUME 90 fL (80-96); MONOCYTES # (AUTO) 1.1 /CMM (0.1-1.30); MONOCYTES % (AUTO) 13.4 % (2.0-12.0); NEUTROPHILS # (AUTO) 4.6 /CMM (1.8-8.9); NEUTROPHILS % (AUTO) 54.5 % (43.0-81.0); PLATELET COUNT (AUTO) 266 /CMM (150-450); RED BLOOD CELL COUNT(AUTO) 4.73 MIL/uL (4.5-6.0); WHITE BLOOD COUNT (AUTO) 8.4 K/uL (4.3-11.0)
[2020-05-22 15:08] LABS: ALBUMIN 3.8 g/dL (3.4-5.0); BILIRUBIN,DIRECT 0.1 mg/dL (0.0-0.2); BILIRUBIN,TOTAL 0.4 mg/dL (0.2-1.0); CALCIUM, SERUM 8.7 mg/dL (8.5-10.1); CREATININE 1.7 mg/dL (0.6-1.3); POTASSIUM 3.8 mmol/L (3.5-5.1); TOTAL PROTEIN, SERUM 7.1 g/dL (6.4-8.2)
--- NOTE | 2020-05-22 15:34 | NUR ---
Social service consult requested by for voluntary psychiatric admission to [facility]. Pt is a 30-year-old male who came to [facility] with his girlfriend complaining of wanting to overdose on medications and requesting voluntary psychiatric hospitalization. STEWARD/STEWARDESS THIRD met with the pt bedside in ED. STEWARD/STEWARDESS THIRD introduced self, explained the role of the SW and purpose of the call. Pt is alert and oriented x 4 with appropriate affect. Pt reports to be homeless for the past few weeks. Prior to being homeless, pt was residing in an Independent Living. Pt reports, he was receiving GR but he stopped getting it a few weeks back. Pt did reapply for GR benefits. Pt's girlfriend is in ED as well for the same complaint. Pt reports to have been dating his girlfriend for the past 6 months. Pt reports his girlfriend is 4 months. Pt has a history of psychiatric hospitalizations. Pt has history of Depression and Anxiety and is not on any medications at this time. Pt reports he was initially feeling suicidal on arrival to the ED but is no longer suicidal and wants to be discharged. Nisha was present bedside as witness to pt no longer being suicidal. Pt denies drug use but uses alcohol occasionally . STEWARD/STEWARDESS THIRD provided active listening, supportive counseling, emotional support and positive coping skills. STEWARD/STEWARDESS THIRD provided pt with Homeless Resources Related to COVID-19 that include information on shelters, hygiene, food resources, Mental health resources and [facility]STAS[place], [employer] program information. notified of pt's discharge plan. STEWARD/STEWARDESS THIRD updated ED CRN Gener.
--- NOTE | 2020-05-22 16:43 | NUR ---
PT. VERBALIZED UNDERSTANDING OF AFTERCARE INSTRUCTIONS.Patient discharged to home in stable condition. Written and verbal after care instructions given. Patient verbalizes understanding of instruction.
[2020-05-22 16:46] VITALS: BP 134/80
== END 2020-05-22 16:46 | disposition home or self-care (01) ==
LOC: ER 13:55
DX: R45.851 Suicidal ideations (principal); F12.10 Cannabis abuse, uncomplicated; N28.9 Disorder of kidney and ureter, unspecified; F32.9 Major depressive disorder, single episode, unspecified; F41.9 Anxiety disorder, unspecified; F17.200 Nicotine dependence, unspecified, uncomplicated; Z60.2 Problems related to living alone; Z59.0 Homelessness
CPT/HCPCS: 36415; 80048; 80076; 80305; 80307; 80329; 81001; 85025; 99283; G0480; 81000-TC

== ENCOUNTER 2020-05-30 11:17 | Emergency (ER) | payer OTHER ==
[~2020-05-30] VITALS: Ht 157.5 cm; Wt 68.0 kg
--- NOTE | 2020-05-30 11:21 | NUR ---
called in waiting room. no answer.
[2020-05-30 11:52] VITALS: BP 156/105
[2020-05-30] MEDS ORDERED: PENICILLIN V POTASSIUM 500 MG TABLET PO ONE ×2 (12:00→12:06)
[2020-05-30] MEDS ORDERED: KETOROLAC TROMETHAMINE INJ 60 MG/2 ML VIAL IM ONE (12:00)
[2020-05-30] MEDS ORDERED: KETOROLAC TROMETHAMINE 15 MG/ML VIAL ONE (12:06)
== END 2020-05-30 12:35 | disposition home or self-care (01) ==
LOC: ER 11:28
DX: K02.9 Dental caries, unspecified (principal); I10 Essential (primary) hypertension; F41.9 Anxiety disorder, unspecified; F32.9 Major depressive disorder, single episode, unspecified; F17.200 Nicotine dependence, unspecified, uncomplicated; Z60.2 Problems related to living alone
CPT/HCPCS: 96372; 99283; J1885

== ENCOUNTER 2020-05-31 15:23 | Emergency (ER) | payer OTHER ==
[~2020-05-31] VITALS: Ht 157.5 cm; Wt 68.0 kg
--- NOTE | 2020-05-31 15:43 | NUR ---
patient came in to the er c/o +SI "i want to hang myself". Sitter at bedside for constant monitoring. Will continue to monitor accordingly.
--- NOTE | 2020-05-31 15:44 | NUR ---
Called security for wanding
--- NOTE | 2020-05-31 15:45 | NUR ---
security at bedside for wanding
--- NOTE | 2020-05-31 15:49 | NUR ---
URINE SAMPLE COLLECTED AND SENT TO LAB
[2020-05-31 16:39] LABS: BASOPHILS % (AUTO) 0.7 % (0.0-2.0); EOSINOPHILS % (AUTO) 0.9 % (0.0-6.0); HEMATOCRIT 46 % (39-51); HEMOGLOBIN 15.6 g/dL (13.5-17.5); LYMPHOCYTES # (AUTO) 2.1 /CMM (0.8-4.8); LYMPHOCYTES % (AUTO) 29.5 % (20.0-44.0); MEAN CORPUSCULAR HGB CONC 34 g/dl (31.0-36.0); MEAN CORPUSCULAR VOLUME 91 fL (80-96); MONOCYTES # (AUTO) 0.8 /CMM (0.1-1.30); MONOCYTES % (AUTO) 10.8 % (2.0-12.0); NEUTROPHILS # (AUTO) 4.2 /CMM (1.8-8.9); NEUTROPHILS % (AUTO) 58.1 % (43.0-81.0); PLATELET COUNT (AUTO) 248 /CMM (150-450); RED BLOOD CELL COUNT(AUTO) 5.07 MIL/uL (4.5-6.0); WHITE BLOOD COUNT (AUTO) 7.2 K/uL (4.3-11.0)
[2020-05-31 16:48] LABS: APPEARANCE,URINE CLEAR (CLEAR); BILIRUBIN,URINE NEGATIVE (NEGATIVE); BLOOD, URINE LARGE Ery/uL (NEGATIVE); COLOR,URINE YELLOW (YELLOW); KETONES,URINE 15 (NEGATIVE); LEUKOCYTE ESTERASE ,URINE TRACE (NEGATIVE); NITRITE, URINE NEGATIVE (NEGATIVE); PROTEIN,URINE >=300 mg/dl (NEGATIVE); UGLUCOSE NEGATIVE (NEGATIVE); UROBILINOGEN,URINE 0.2 EU/dL (0.2)
[2020-05-31 17:06] LABS: BACTERIA,URINE RARE /HPF (None Seen); SQUAMOUS EPITHELIAL CELL,UR 0-2 /HPF (None Seen); YEAST,URINE Few /HPF (None Seen)
[2020-05-31 17:07] LABS: CALCIUM, SERUM 9.5 mg/dL (8.5-10.1); CARBON DIOXIDE 26 mmol/L (21-32); CHLORIDE 99 mmol/L (98-107); CREATININE 1.7 mg/dL (0.6-1.3); GLUCOSE 106 mg/dL (74-106); POTASSIUM 3.5 mmol/L (3.5-5.1); SODIUM SERUM 135 mmol/L (136-145); UREA NITROGEN, BLOOD 11 mg/dL (7-18)
[2020-05-31 17:47] LABS: ALANINE AMINOTRANSFERASE 26 U/L (12-78); ALCOHOL, BLOOD < 3 mg/dL (0-0); ALKALINE PHOSPHATASE 58 U/L (46-116); ASPARTATE AMINOTRANSFERASE 28 U/L (15-37); BILIRUBIN,DIRECT 0.3 mg/dL (0.0-0.2); BILIRUBIN,TOTAL 1.4 mg/dL (0.2-1.0); TOTAL PROTEIN, SERUM 7.6 g/dL (6.4-8.2)
[2020-05-31 17:51] LABS: SALICYLATE < 2.8 mg/dL (2.8-20.0)
--- NOTE | 2020-05-31 18:45 | NUR ---
Presented case to Saad for voluntary admission. No beds available Face sheet and clinical information faxed
--- NOTE | 2020-05-31 19:30 | NUR ---
ASSUMED CARE FOR THIS PT
--- NOTE | 2020-05-31 22:06 | NUR ---
PT ASLEEP. VSS. NO ACUTE DISTRESS NOTED. SITTER AT BEDSIDE FOR SAFETY
--- NOTE | 2020-06-01 02:52 | NUR ---
PT RESTING COMFORTABLY IN BED. VSS. NO ACUTE DISTRESS NOTED. SITTER AT BEDSIDE FOR SAFETY
[2020-06-01 05:39] VITALS: BP 129/78
--- NOTE | 2020-06-01 05:39 | NUR ---
PT RESTING COMFORTABLY IN BED. VSS. NO ACUTE DISTRESS NOTED. SITTER AT BEDSIDE FOR SAFETY
--- NOTE | 2020-06-01 05:43 | NUR ---
JENELLE ERIC PLASTIC OUTFITTER PAGED FOR PSYCH EVAL.
--- NOTE | 2020-06-01 06:08 | NUR ---
PT ASLEEP VSS. NO ACUTE DISTRESS NOTED. SITTER AT BEDSIDE FOR SAFETY
--- NOTE | 2020-06-01 07:41 | NUR ---
Patient discharged to home in stable condition. Written and verbal after care instructions given. Patient verbalizes understanding of instruction.
--- NOTE | 2020-06-01 07:42 | NUR ---
PATIENT VERBALIZES UNDERSTANDING, BUT REFUSED TO SIGN DISCHARGE FORM.
== END 2020-06-01 07:43 | disposition home or self-care (01) ==
LOC: ER 15:23
DX: R45.851 Suicidal ideations (principal); F19.10 Other psychoactive substance abuse, uncomplicated; F32.9 Major depressive disorder, single episode, unspecified; R31.29 Other microscopic hematuria; R79.89 Other specified abnormal findings of blood chemistry; I10 Essential (primary) hypertension; F41.9 Anxiety disorder, unspecified; Z60.2 Problems related to living alone
CPT/HCPCS: 36415; 76770; 80048; 80076; 80305; 80307; 80329; 81001; 85025; 99284; G0480; 81000-TC

== ENCOUNTER 2020-06-24 14:06 | Emergency (ER) | payer OTHER ==
[~2020-06-24] VITALS: Ht 157.5 cm; Wt 68.0 kg
[2020-06-24 14:49] VITALS: BP 149/94
[2020-06-24] MEDS ORDERED: CEFTRIAXONE 500 MG VIAL ONE ×2 (15:42→15:52)
[2020-06-24] MEDS ORDERED: LIDOCAINE /MPF 1% VIAL 5 ML VIAL ONE (15:43)
[2020-06-24] MEDS ORDERED: AZITHROMYCIN 250 MG TABLET ONE (15:43)
[2020-06-24] MEDS ORDERED: AZITHROMYCIN 250 MG TABLET PO ONE (16:00)
[2020-06-24] MEDS ORDERED: CEFTRIAXONE 500 MG VIAL IM ONE (16:00)
--- NOTE | 2020-06-24 16:18 | NUR ---
Patient discharged to home in stable condition. Written and verbal after care instructions given. Patient verbalizes understanding of instruction.IV removed. Catheter intact and site benign. Pressure and 4x4 applied to site. No bleeding noted.
[2020-06-24 16:39] LABS: APPEARANCE,URINE Slightly Cloudy (CLEAR); BILIRUBIN,URINE Negative (NEGATIVE); BLOOD, URINE Moderate Ery/uL (NEGATIVE); COLOR,URINE Yellow (YELLOW); KETONES,URINE Negative (NEGATIVE); LEUKOCYTE ESTERASE ,URINE Negative (NEGATIVE); NITRITE, URINE Negative (NEGATIVE); PROTEIN,URINE 100 mg/dl (NEGATIVE); UGLUCOSE Negative (NEGATIVE)
[2020-06-24 16:46] LABS: BACTERIA,URINE None seen /HPF (None Seen); SQUAMOUS EPITHELIAL CELL,UR Few /HPF (None Seen); URINE AMORPHOUS URATE Moderate /HPF (None Seen); WBC,URINE 0-2 /HPF (0-3)
== END 2020-06-24 16:18 | disposition home or self-care (01) ==
LOC: ER 14:09
DX: R30.0 Dysuria (principal); I10 Essential (primary) hypertension; F32.9 Major depressive disorder, single episode, unspecified; F41.9 Anxiety disorder, unspecified; F17.200 Nicotine dependence, unspecified, uncomplicated; Z60.2 Problems related to living alone
CPT/HCPCS: 81001; 87086; 87491; 87591; 96374; 99283; J0696 ×2; J3490; 81000-TC

== ENCOUNTER 2021-01-25 10:05 | Emergency (ER) | payer OTHER ==
[~2021-01-25] VITALS: Ht 157.5 cm; Wt 59.0 kg
--- NOTE | 2021-01-25 10:15 | NUR ---
PT AMBULATORY TO ER BED 12 C/O LOWER BACK PAIN SINCE LAST NIGHT S/P WORK. HE STATES HE WAS USING A JACKHAMMER YESTERDAY. PT PT NOTICE BLOOD IN HIS URINE THIS MORNING. STABLE VITALS. AWAITING MD GARCÍA.
[2021-01-25 10:37] LABS: BASOPHILS # (AUTO) 0.1 /CMM (0.0-0.2); EOSINOPHILS % (AUTO) 4.1 % (0.0-6.0); HEMATOCRIT 44 % (39-51); HEMOGLOBIN 15.2 g/dL (13.5-17.5); LYMPHOCYTES # (AUTO) 1.3 /CMM (0.8-4.8); LYMPHOCYTES % (AUTO) 17.2 % (20.0-44.0); MEAN CORPUSCULAR HGB CONC 34 g/dl (31.0-36.0); MEAN CORPUSCULAR VOLUME 90 fL (80-96); MONOCYTES # (AUTO) 0.8 /CMM (0.1-1.30); NEUTROPHILS # (AUTO) 5.1 /CMM (1.8-8.9); NEUTROPHILS % (AUTO) 66.7 % (43.0-81.0); PLATELET COUNT (AUTO) 214 /CMM (150-450); RED BLOOD CELL COUNT(AUTO) 4.91 MIL/uL (4.5-6.0); WHITE BLOOD COUNT (AUTO) 7.6 K/uL (4.3-11.0)
[2021-01-25 10:48] LABS: CALCIUM, SERUM 8.5 mg/dL (8.5-10.1); CREATININE 1.7 mg/dL (0.6-1.3); POTASSIUM 4.1 mmol/L (3.5-5.1)
[2021-01-25 10:50] LABS: BILIRUBIN,URINE Negative (NEGATIVE); COLOR,URINE YELLOW (YELLOW); LEUKOCYTE ESTERASE ,URINE Negative (NEGATIVE); NITRITE, URINE Negative (NEGATIVE); PH,URINE 5.5 (5.0-8.0); PROTEIN,URINE 100 mg/dl (NEGATIVE); UGLUCOSE Negative (NEGATIVE)
[2021-01-25 10:56] LABS: BACTERIA,URINE None seen /HPF (None Seen); SQUAMOUS EPITHELIAL CELL,UR Few /HPF (None Seen); WBC,URINE 0-2 /HPF (0-3)
[2021-01-25] MEDS ORDERED: KETOROLAC TROMETHAMINE 15 MG/ML VIAL ONE (10:59)
[2021-01-25] MEDS ORDERED: KETOROLAC TROMETHAMINE INJ 30 MG/ML VIAL IM ONE (11:00)
--- NOTE | 2021-01-25 11:07 | NUR ---
MEDICATED FOR PAIN PER ERMD ORDER, PT CILEO WELL.
--- NOTE | 2021-01-25 11:30 | NUR ---
PATIENT IS AAO X4. DENIES PAIN AT THIS TIME. IN ROOM AIR AND DENIES SOB. RESPIRATION REGUALR AND UNLABORED. WILL CONTINUE TO MONITOR THE PATIENT.
--- NOTE | 2021-01-25 12:06 | NUR ---
The patient is alert anad oriented X4. Denies pain, denies sob. Patient discharged to home in stable condition. Written and verbal after care instructions given. Patient verbalizes understanding of instruction. Patient left ER in stable condition.
[2021-01-25 12:07] VITALS: BP 129/88
--- NOTE | 2021-01-25 12:10 | NUR ---
Patient given written and verbal discharge instructions. Patient verbalizes understanding of instructions. Patient is ambulatory with steady gait. Refuses offer of retirement placement. Patient given list of available shelters in surrounding area. The patient left ER in stable condition.
== END 2021-01-25 12:13 | disposition home or self-care (01) ==
LOC: ER 10:05
DX: N28.9 Disorder of kidney and ureter, unspecified (principal); R31.9 Hematuria, unspecified; M54.5 Low back pain; I10 Essential (primary) hypertension; F32.9 Major depressive disorder, single episode, unspecified; F41.9 Anxiety disorder, unspecified; F17.200 Nicotine dependence, unspecified, uncomplicated; Z60.2 Problems related to living alone
CPT/HCPCS: 36415; 74176; 80048; 81001; 85025; 96372; 99284; J1885

== ENCOUNTER 2021-02-17 00:22 | Emergency (ER) | payer OTHER ==
[~2021-02-17] VITALS: Ht 157.5 cm; Wt 59.0 kg
--- NOTE | 2021-02-17 00:27 | NUR ---
CALLED FOR TRIAGE, NO ANSWER.
--- NOTE | 2021-02-17 00:35 | NUR ---
CALLED FOR TRIAGE, NO ANSWER.
--- NOTE | 2021-02-17 00:40 | NUR ---
CALLED FOR TRIAGE, NO ANSWER.
--- NOTE | 2021-02-17 04:56 | NUR ---
TO ER BED 14 BIBSELF C/O SUICIDAL IDEATION WITH PLAN TO OD ON DRUGS. DENIES HI. REQUESTING VOLUNTARY PSYCH ADMISSION TO [facility]. PT AAOX4, NO ACUTE DISTRESS NOTED, RESP EVEN AND UNLABORED. PT CALM AND COOPERATIVE AT THIS TIME. PLACE PT ON HOSPITAL GOWN, ALL BELONGINGS REMOVED AND PLACED IN A LOCKED HOSPITAL LOCKER. 1:1 SITTER AT BEDSIDE. ER MD AT BEDSIDE TO EVAL PT WITH ORDERS RECIEVED.
--- NOTE | 2021-02-17 05:00 | NUR ---
URINE SAMPLE COLLECTED AND SENT TO LAB.
--- NOTE | 2021-02-17 05:06 | NUR ---
ACTUARIAL CLERK AT BEDSIDE FOR BLOOD DRAW.
--- NOTE | 2021-02-17 05:15 | NUR ---
COVID SWAB COLLECTED AND SENT TO LAB
[2021-02-17 05:30] LABS: BASOPHILS # (AUTO) 0.1 /CMM (0.0-0.2); BASOPHILS % (AUTO) 1.1 % (0.0-2.0); EOSINOPHILS % (AUTO) 3.7 % (0.0-6.0); HEMATOCRIT 46 % (39-51); HEMOGLOBIN 15.9 g/dL (13.5-17.5); LYMPHOCYTES # (AUTO) 3.1 /CMM (0.8-4.8); LYMPHOCYTES % (AUTO) 29.6 % (20.0-44.0); MEAN CORPUSCULAR HGB CONC 35 g/dl (31.0-36.0); MEAN CORPUSCULAR VOLUME 89 fL (80-96); MONOCYTES # (AUTO) 1.2 /CMM (0.1-1.30); MONOCYTES % (AUTO) 11.2 % (2.0-12.0); NEUTROPHILS # (AUTO) 5.7 /CMM (1.8-8.9); NEUTROPHILS % (AUTO) 54.4 % (43.0-81.0); PLATELET COUNT (AUTO) 268 /CMM (150-450); RED BLOOD CELL COUNT(AUTO) 5.17 MIL/uL (4.5-6.0); WHITE BLOOD COUNT (AUTO) 10.5 K/uL (4.3-11.0)
[2021-02-17 05:31] LABS: BILIRUBIN,URINE NEGATIVE (NEGATIVE); COLOR,URINE YELLOW (YELLOW); LEUKOCYTE ESTERASE ,URINE NEGATIVE (NEGATIVE); NITRITE, URINE NEGATIVE (NEGATIVE); PROTEIN,URINE 100 mg/dl (NEGATIVE); UGLUCOSE NEGATIVE (NEGATIVE)
[2021-02-17 05:38] LABS: BACTERIA,URINE None seen /HPF (None Seen); MUCUS,URINE Few /LPF (None Seen); SQUAMOUS EPITHELIAL CELL,UR Few /HPF (None Seen); URINE AMORPHOUS URATE Few /HPF (None Seen)
[2021-02-17 05:39] LABS: CALCIUM, SERUM 8.9 mg/dL (8.5-10.1); CARBON DIOXIDE 31 mmol/L (21-32); CHLORIDE 99 mmol/L (98-107); CREATININE 1.9 mg/dL (0.6-1.3); GLUCOSE 77 mg/dL (74-106); POTASSIUM 3.5 mmol/L (3.5-5.1); SODIUM SERUM 134 mmol/L (136-145); UREA NITROGEN, BLOOD 20 mg/dL (7-18)
[2021-02-17 05:44] LABS: ALANINE AMINOTRANSFERASE 26 U/L (12-78); ALBUMIN 3.9 g/dL (3.4-5.0); ALKALINE PHOSPHATASE 86 U/L (46-116); ASPARTATE AMINOTRANSFERASE 34 U/L (15-37); BILIRUBIN,DIRECT 0.3 mg/dL (0.0-0.2); BILIRUBIN,TOTAL 1.4 mg/dL (0.2-1.0); TOTAL PROTEIN, SERUM 7.9 g/dL (6.4-8.2)
[2021-02-17 05:45] LABS: ACETAMINOPHEN 0 ug/ml (10-30); ALCOHOL, BLOOD < 3 mg/dL (0-0)
--- NOTE | 2021-02-17 05:48 | NUR ---
LAB CALLED REGARDING NEGATIVE COVID RESULT.
--- NOTE | 2021-02-17 05:59 | NUR ---
CLINICAL AND FACESHEET FAXED TO [facility] FOR VOLUNTARY ADMISSION.
--- NOTE | 2021-02-17 10:25 | NUR ---
"SS Consult: SS Consult requested for homelessness and SI. The pt. is 30-year old Black male. ALONDRA met with pt. bedside. pt. is drowsy and rousable to verbal cues. The pt. appears unkempt. Pt. is alert & oriented x 3. The pt. makes poor eye contact and remained with eye closed throughout interview. SW assessed for SI. Per pt. he came to the ED to seek medical attention for SI. SW did not respond when asked if he has a plan. Pt. did not answer when asked about Hx. of mental health. SW offered voluntary placement at a psychiatric facility and patient is agreeable. ALONDRA assessed pt.s living situation. Pt. stated he has been experiencing homelessness for the past [address] Pt.s father, Romel Gonzalez [phone] is his support system. Patient is ambulatory. Patient denies receiving financial assistance. Pt. did not respond to questions regarding drug or alcohol use. SW unable to gather additional information a spt. is non-complaint with assessment. Plan: ALONDRA referred pt. to [facility] [[address] [place] [address] ] for inpatient psychiatric treatment. Pt. signed homeless waiver and it was placed in the pt.s chart. Pt. refused to sign homeless waiver. ALONDRA provided pt. with the following homeless resources and pt. accepted them: Substance Abuse resources provided included: [facility] Substance Abuse Self-Helpline (SAS) ; CRI -HELP [address] [facility]. [place] [address] ; [facility] 28800 [facility] [address] ; [facility] 11762 [facility] [address] ; [facility] [address]. [facility] [address] ; [place] [facility] 4940 [facility] [address] ; [facility] 909 [facility] Cent[facility] [phone] ; [facility] Substance Abuse Helpline(SAS)-[facility] ; [facility] ; [facility] [place]; [facility] [place]; Cri-Help [place]; I-ADARP Inter Agency Drug Abuse Recovery Dick Garcia; [facility] [place]; [facility]; [facility]; [facility] Miquel [place]; Alcoholics Anonymous -SFV; La-Dsxj-Qpeocju ; Marijuana Anonymous -SFV; Narcotics Anonymous www.na.org; Year-round shelters: [facility] [place] [address] [place], [place] [phone] ; [facility] [facility] [place] [address] [place] [address]; [address] [facility] Optdeux8113 [facility] [address] Winter Shelters: [place] Provider: Rod [facility] [place] Address: [address] [facility] General Hospitaldisha Roman [place], [address] # of Beds: 47 Population Served: [facility] 6 | [facility] Rae Goldstein [place] Provider: Home at Last Address: [address], [address] # of Beds: 66 Population Served: [facility] [place] Provider: First to Serve Address: [address]28 [facility], [address] # of Beds: 56 Population Served: [facility] Jose Esqueda [place] Provider: SSLalito/Ms. [facility] Address: [address] [facility], [address] # of Beds: 49 Population Served: Coed SPA 8 | [facility] Provider: First to Serve Address: [address] [place], [place] [address]Patricia Crain # of Beds: 37 Population Served: Coed Hygiene: [facility]: [address] [address] Landingmike Roman. [place] ; [facility] [address] [facility] Reseda ; [facility] [address] Gilson Nayeli . Food Resources: [place] [facility] at [facility]- [address] [place]; Meet Each Need with Dignity ([facility]) 81950 [facility] HospitalRu [place]; [facility]al [facility] Services Food Pantry 4939 [facility]; [facility] 9850 [facility]. Mental Health resources provided: [facility] [address] [place], [place] [id number] ; [facility] 41899 [facility] [address], [place], [place] [phone] ; Judy Campoverde [facility] [address] [address] Campoverde Dr[place], [place] [phone] ; [facility] [address] [place], [place] [address] Healthcare Clinics: [facility] 6551 [facility], [address] [place]. [place] ; [facility] 6801 [facility] [address] [place] [address]; [facility] 93554 [facility]. [place] [phone] Counseling--Outpatient [facility] 4419 [facility], [place] [address] (Specializes in in-depth psychotherapy for emotional distress: anxiety, depression, interpersonal conflicts, life transitions, childhood abuse) [facility] [address] [place] [address] (Assist with solving problem marital difficulties, separation & divorce, aging parents, & grief, chronic & terminal illness) [facility] [address] [place] [address] (Deal with loss & grief, anxiety, marital difficulties) Homebound/Mental Health Services 13015 [facility] [address] [place], [place] [phone] (Provide in-home mental services to people who are incapable of leaving their homes) Organization for Needs of the Elderly Senior Service/Resource Center [address]92 [place] [address] [facility] [address]14 [place] [address] PSYCHIATRIC OUTPATIENT SERVICES [facility] Partial Hospitalization and Intensive Outpatient Program (Managed Care and [place] Only)57348 [address] Blizzy. [facility] [phone] [facility] Partial Hospitalization and Outpatient Tnfhiiz50818 [facility]. [address] [place], [place] [phone] [facility] Partial Hospitalization and Outpatient [id number] [facility]. [place], [place] [phone] [facility] [id number] [facility]. [address] [place], [place] [phone] [facility] Dick Garcia Partial Hospitalization and Outpatient Dignuyn82599 Emelita [facility] Dick Garcia [phone] "
--- NOTE | 2021-02-17 10:34 | NUR ---
[facility] UNDER THE CARE OF DR. FRANCO (PSYCH) AND DR. PITT (MEDICAL).
--- NOTE | 2021-02-17 10:38 | NUR ---
REPORT GIVEN TO LORENZA FRIEDMAN AT UNIT 2, [facility]. ETA 1138
--- NOTE | 2021-02-17 10:40 | NUR ---
TRANSPORT AM [facility] CALLED ETA 1130 PER MARY.
[2021-02-17 10:45] VITALS: BP 90/52
--- NOTE | 2021-02-17 11:30 | NUR ---
REPORT GIVEN TO LAWN MOWER MECHANIC. PATIENT TRANSFERRED TO [facility]. IN STABLE CONDITION.
== END 2021-02-17 11:38 ==
LOC: ER 00:26
DX: R45.851 Suicidal ideations (principal); Z20.822 Contact with and (suspected) exposure to COVID-19; F41.9 Anxiety disorder, unspecified
CPT/HCPCS: 36415; 80048; 80076; 80299; 80307; 80320; 81001; 85025; 87086; 87426; 99285; C9803; G0480

== ENCOUNTER 2021-03-12 02:10 | Emergency (ER) | payer OTHER ==
[~2021-03-12] VITALS: Ht 154.9 cm; Wt 79.4 kg
[2021-03-12 02:28] VITALS: BP 131/79
--- NOTE | 2021-03-12 02:30 | NUR ---
PRESENTED TO THE ER FOR C/O DEPRESSION AND SI. PLANNING TO OVERDOSE. DENIED HI. REQUESTING VOLUNTARY ADMISSION TO PSYCH HOSPITALS. PT AMBULATORY W. STEADY GAITS. WS PLACED ON A MONITOR AND SUPERVISION OF A SIITER, SI PRECAUTION IMPLEMENTED. NEEDS ATTENDED. VSS. WILL CONT TO MONITOR ,
[2021-03-12 02:36] LABS: BASOPHILS # (AUTO) 0.1 /CMM (0.0-0.2); BASOPHILS % (AUTO) 1.4 % (0.0-2.0); EOSINOPHILS % (AUTO) 5.3 % (0.0-6.0); HEMATOCRIT 44 % (39-51); HEMOGLOBIN 15.1 g/dL (13.5-17.5); LYMPHOCYTES % (AUTO) 32.7 % (20.0-44.0); MEAN CORPUSCULAR HGB CONC 34 g/dl (31.0-36.0); MEAN CORPUSCULAR VOLUME 91 fL (80-96); MONOCYTES # (AUTO) 0.7 /CMM (0.1-1.30); NEUTROPHILS % (AUTO) 49.6 % (43.0-81.0); PLATELET COUNT (AUTO) 250 /CMM (150-450); RED BLOOD CELL COUNT(AUTO) 4.85 MIL/uL (4.5-6.0); WHITE BLOOD COUNT (AUTO) 6.1 K/uL (4.3-11.0)
[2021-03-12 02:37] LABS: BILIRUBIN,URINE NEGATIVE (NEGATIVE); COLOR,URINE YELLOW (YELLOW); LEUKOCYTE ESTERASE ,URINE NEGATIVE (NEGATIVE); NITRITE, URINE NEGATIVE (NEGATIVE); PROTEIN,URINE 30 mg/dl (NEGATIVE); UGLUCOSE NEGATIVE (NEGATIVE); UROBILINOGEN,URINE 0.2 EU/dL (0.2)
[2021-03-12 02:54] LABS: BACTERIA,URINE None seen /HPF (None Seen); RBC,URINE 21-50 /HPF (0-2); SQUAMOUS EPITHELIAL CELL,UR Few /HPF (None Seen); WBC,URINE 0-2 /HPF (0-3)
[2021-03-12 02:56] LABS: CALCIUM, SERUM 9.2 mg/dL (8.5-10.1); CARBON DIOXIDE 26 mmol/L (21-32); CHLORIDE 104 mmol/L (98-107); CREATININE 1.7 mg/dL (0.6-1.3); GLUCOSE 93 mg/dL (74-106); POTASSIUM 4.4 mmol/L (3.5-5.1); SODIUM SERUM 140 mmol/L (136-145); UREA NITROGEN, BLOOD 15 mg/dL (7-18)
[2021-03-12 03:04] LABS: ACETAMINOPHEN < 2 ug/ml (10-30); ALANINE AMINOTRANSFERASE 27 U/L (12-78); ALBUMIN 3.7 g/dL (3.4-5.0); ALCOHOL, BLOOD 14 mg/dL (0-0); ALKALINE PHOSPHATASE 63 U/L (46-116); ASPARTATE AMINOTRANSFERASE 14 U/L (15-37); BILIRUBIN,DIRECT 0.1 mg/dL (0.0-0.2); BILIRUBIN,TOTAL 0.2 mg/dL (0.2-1.0); TOTAL PROTEIN, SERUM 7.3 g/dL (6.4-8.2)
--- NOTE | 2021-03-12 08:10 | NUR ---
RECIEVED A CALL FROM [facility]. PATIENT HAS BEEN ACCEPTED BY [facility], JUST REQUESTING TO SEND PATIENT AFTER 11 AM. PLEASE CALL YAKOV LEGGETT FOR REPORT AT [phone].
--- NOTE | 2021-03-12 08:16 | NUR ---
The patient sleeping in bed. Responsive to verbal stimuli. In no apparent distress.
--- NOTE | 2021-03-12 09:49 | NUR ---
CALLED [facility] FOR TRANSPORT TO [facility]. PLACED PICKUP TIME FOR 11 AND WILL BE HERE AROUND 11 FOR TRANSPORT.
--- NOTE | 2021-03-12 11:30 | NUR ---
"SS Note: SW consult requested for SI/ Polysubstance use/ Homelessness. The pt. is a 30-year old male. The pt. came in with complaints of SI with plan to OD, per EMR. Pt. was referred & accepted to [facility] [[address] [place] [address] ] for inpatient psychiatric treatment. SW completed homeless discharge and pt. refused to sign homeless waiver. SW provided pt. with the homeless resources & mental health resources & pt. accepted them: Substance Abuse resources provided included: [facility] Substance Abuse Self-Helpline ([facility]) ; CRI -HELP 07359 [facility]. [place] 9[address] ; [facility] 67695 [facility] [address] ; [facility] 74446 [facility] [address] ; [facility] 400 [facility] [phone] ; [facility] 4940 [facility] [address] ; [facility] 909 [facility] [address] ; [facility] Substance Abuse Helpline([facility] ; [facility] ; [facility] [place]; [facility]ri-Help [place]; I-ADARP Inter Agency Drug Abuse Recovery [place]; [place] [facility] [place]; [place]; [facility], [facility]. [place]; Alcoholics Anonymous -SFV; Jv-Vdor-Zltjzok ; Marijuana Anonymous -SFV; Narcotics Anonymous www.na.org; Year-round shelters: [place] [address] [place] [address] ; [facility] [place] [address] [place] [address]; [place] [facility] [address]rq[address] [facility] [address] Winter Shelters: Ashleigh Schmitt [place] Provider: Volunteers [facility] Dar[place] Address: [address] [place], [address] # of Beds: 47 Population Served: [facility] 6 | [facility] Rae Goldstein [place] Provider: Home at Last Address: [address], [address] # of Beds: 66 Population Served: [facility] Att[employer] [place] Provider: First to Serve Address: [address]56 [facility], [address] # of Beds: 56 Population Served: [facility] Jose Esqueda [place] Provider: SS/Ms. Delg[facility]illo[facility] House Address: 8908 [facility], [address] # of Beds: 49 Population Served: [facility] 8 | [facility] Provider: First to Serve Address: 3535 [facility], [address] # of Beds: 37 Population Served: [facility] Hygiene: [facility]: [address] [place] ; [facility] [address]97 [facility] ; [facility] 5055 Henrry Tania Roman . Food Resources: [place] [facility] at [facility]- [address] [place]; Meet Each Need with Dignity ([facility]) [address] [place]; [facility] Food Pantry 6471 [facility]; [facility] 8520 [facility] [place]. Mental Health resources provided: [facility] [address] [place], [place] [address] ; [facility] 68100 [place] ulises [address], [place] [address] ; [facility] [address] [place] [address] ; [facility] [address] [place], [place] [address] Healthcare Clinics: [facility] 6551 [facility], [address] [place]. [place] ; [facility] Clinic 6801 [facility] [address] [place] [address]; [facility] [address]85 [place] [address] [phone] Counseling--Outpatient [facility] 4419 [facility], [place] [address] (Specializes in in-depth psychotherapy for emotional distress: anxiety, depression, interpersonal conflicts, life transitions, childhood abuse) [facility] [address] [place] [address] (Assist with solving problem marital difficulties, separation & divorce, aging parents, & grief, chronic & terminal illness) [facility] [address] [place] [address] (Deal with loss & grief, anxiety, marital difficulties) Homebound/Mental Health Services 32429 Manuel [facility], [address] [place], [place] [phone] (Provide in-home mental services to people who are incapable of leaving their homes) Organization for Needs of the Elderly Senior Service/Resource Center 14282 [place] [address] [facility] 6514 [facility]. [place], [place] [phone] PSYCHIATRIC OUTPATIENT SERVICES [facility] Partial Hospitalization and Intensive Outpatient Program (Managed Care and [place] Only)26729 Bj Ferreira. [facility] [phone] [facility] Partial Hospitalization and Outpatient Kmeuldg27635 MendotaFormerly [facility]. [address] [place], [place] [phone] [facility] Partial Hospitalization and Outpatient [id number] Tania Calvin [place], [place] [phone] TANIA OMER [facility] Mental [facility] [id number] WingC[facility]. [address] [place], [place] [phone] [facility] Radha Partial Hospitalization and Outpatient [id number] [facility] Tania GarciaWHEELWRIGHT, [phone] "
--- NOTE | 2021-03-12 11:39 | NUR ---
GAVE REPORT TO [facility] UNIT 325.
--- NOTE | 2021-03-12 11:42 | NUR ---
PATEINT A/OX4, BREATHING EVEN AND UNLABORED, PATIENT TRANSFERRED TO [facility] INS TABLE CONDITION.
== END 2021-03-12 11:43 ==
LOC: ER 02:10
DX: R45.851 Suicidal ideations (principal); F32.9 Major depressive disorder, single episode, unspecified; F19.10 Other psychoactive substance abuse, uncomplicated; Z59.0 Homelessness; F17.200 Nicotine dependence, unspecified, uncomplicated; I10 Essential (primary) hypertension; F41.9 Anxiety disorder, unspecified; Z20.822 Contact with and (suspected) exposure to COVID-19
CPT/HCPCS: 36415; 80048; 80076; 80299; 80307; 80320; 81001; 85025; 87426; 99285; A6403; C9803; G0480

== ENCOUNTER 2021-04-01 16:27 | Emergency (ER) | payer OTHER ==
[~2021-04-01] VITALS: Ht 154.9 cm; Wt 72.6 kg
[2021-04-01 18:12] LABS: BASOPHILS # (AUTO) 0.1 /CMM (0.0-0.2); BASOPHILS % (AUTO) 1.1 % (0.0-2.0); EOSINOPHILS % (AUTO) 3.6 % (0.0-6.0); HEMATOCRIT 40 % (39-51); HEMOGLOBIN 13.5 g/dL (13.5-17.5); LYMPHOCYTES # (AUTO) 1.9 /CMM (0.8-4.8); LYMPHOCYTES % (AUTO) 28.8 % (20.0-44.0); MEAN CORPUSCULAR HGB CONC 34 g/dl (31.0-36.0); MEAN CORPUSCULAR VOLUME 91 fL (80-96); MONOCYTES # (AUTO) 0.7 /CMM (0.1-1.30); MONOCYTES % (AUTO) 10.3 % (2.0-12.0); NEUTROPHILS # (AUTO) 3.8 /CMM (1.8-8.9); NEUTROPHILS % (AUTO) 56.2 % (43.0-81.0); PLATELET COUNT (AUTO) 236 /CMM (150-450); RED BLOOD CELL COUNT(AUTO) 4.39 MIL/uL (4.5-6.0); WHITE BLOOD COUNT (AUTO) 6.8 K/uL (4.3-11.0)
[2021-04-01 18:22] LABS: CALCIUM, SERUM 8.8 mg/dL (8.5-10.1); CARBON DIOXIDE 25 mmol/L (21-32); CHLORIDE 107 mmol/L (98-107); GLUCOSE 94 mg/dL (74-106); POTASSIUM 3.9 mmol/L (3.5-5.1); SODIUM SERUM 140 mmol/L (136-145); UREA NITROGEN, BLOOD 16 mg/dL (7-18)
[2021-04-01 18:30] LABS: ALANINE AMINOTRANSFERASE 33 U/L (12-78); ALBUMIN 3.5 g/dL (3.4-5.0); ALCOHOL, BLOOD < 3 mg/dL (0-0); ALKALINE PHOSPHATASE 70 U/L (46-116); ASPARTATE AMINOTRANSFERASE 26 U/L (15-37); BILIRUBIN,DIRECT 0.1 mg/dL (0.0-0.2); BILIRUBIN,TOTAL 0.5 mg/dL (0.2-1.0); TOTAL PROTEIN, SERUM 6.9 g/dL (6.4-8.2)
[2021-04-01 18:32] LABS: ACETAMINOPHEN < 0 ug/ml (10-30)
[2021-04-01 19:02] LABS: BILIRUBIN,URINE Negative (NEGATIVE); COLOR,URINE YELLOW (YELLOW); LEUKOCYTE ESTERASE ,URINE Negative (NEGATIVE); NITRITE, URINE Negative (NEGATIVE); PH,URINE 5.5 (5.0-8.0); PROTEIN,URINE 100 mg/dl (NEGATIVE); UGLUCOSE Negative (NEGATIVE); UROBILINOGEN,URINE 0.2 EU/dL (0.2)
[2021-04-01 19:35] LABS: BACTERIA,URINE None seen /HPF (None Seen); MUCUS,URINE Few /LPF (None Seen); SQUAMOUS EPITHELIAL CELL,UR None Seen /HPF (None Seen); WBC,URINE 0-2 /HPF (0-3)
--- NOTE | 2021-04-01 19:57 | NUR ---
FACESHEET AND CLINICALS FAXED TO MARI GALAN.
--- NOTE | 2021-04-02 04:46 | NUR ---
SPOKE TO ART SO GIUSEPPE WINN CM [facility]
--- NOTE | 2021-04-02 04:55 | NUR ---
[place] [facility]AROD CALL THE CAR CALLED FOR TRANSPORT. TRIP# [id number]
--- NOTE | 2021-04-02 05:03 | NUR ---
eta [phone], addie martell from call the car
--- NOTE | 2021-04-02 06:28 | NUR ---
Report given to ELDER Pope. aware ETa picker [phone]
[2021-04-02 10:15] VITALS: BP 121/77
--- NOTE | 2021-04-02 10:21 | NUR ---
trans[facility] to [facility] in stable condition.
== END 2021-04-02 10:20 ==
LOC: ER 16:29
DX: R45.851 Suicidal ideations (principal); F19.10 Other psychoactive substance abuse, uncomplicated; Z20.822 Contact with and (suspected) exposure to COVID-19; J45.909 Unspecified asthma, uncomplicated; F41.9 Anxiety disorder, unspecified; F17.200 Nicotine dependence, unspecified, uncomplicated
CPT/HCPCS: 36415; 80048; 80076; 80143; 80307; 80320; 81001; 85025; 87426; 99285; C9803; G0480

== ENCOUNTER 2021-04-16 00:59 | Emergency (ER) | payer OTHER ==
[~2021-04-16] VITALS: Ht 154.9 cm; Wt 72.6 kg
[2021-04-16] MEDS ORDERED: ASPIRIN 325 MG TABLET ONE (01:33)
[2021-04-16] MEDS: ASPIRIN 325 MG TABLET PO ONE (01:39)
--- NOTE | 2021-04-16 01:40 | NUR ---
BIBSELF C/O CP AND SOB X2 DAYS. PT STATES HE HAD STENT PLACED X3 WEEKS AGO PT HAS NOT BEEN COMPLIANT WITH BLOOD THINNERS/HTN MEDS, UNABLE TO NAME THEM. TO ER BED 6 EKG DONE, LINE AND LABS COMPLETED
[2021-04-16 01:43] LABS: BASOPHILS # (AUTO) 0.1 /CMM (0.0-0.2); BASOPHILS % (AUTO) 1.1 % (0.0-2.0); EOSINOPHILS % (AUTO) 1.3 % (0.0-6.0); HEMATOCRIT 46 % (39-51); HEMOGLOBIN 15.8 g/dL (13.5-17.5); LYMPHOCYTES # (AUTO) 2.1 /CMM (0.8-4.8); LYMPHOCYTES % (AUTO) 27.3 % (20.0-44.0); MEAN CORPUSCULAR HGB CONC 34 g/dl (31.0-36.0); MEAN CORPUSCULAR VOLUME 91 fL (80-96); MONOCYTES % (AUTO) 13.4 % (2.0-12.0); NEUTROPHILS # (AUTO) 4.4 /CMM (1.8-8.9); NEUTROPHILS % (AUTO) 56.9 % (43.0-81.0); PLATELET COUNT (AUTO) 236 /CMM (150-450); RED BLOOD CELL COUNT(AUTO) 5.12 MIL/uL (4.5-6.0); WHITE BLOOD COUNT (AUTO) 7.8 K/uL (4.3-11.0)
--- NOTE | 2021-04-16 01:56 | NUR ---
TECH AT BEDSIDE
[2021-04-16 02:04] LABS: CALCIUM, SERUM 9.1 mg/dL (8.5-10.1); CARBON DIOXIDE 26 mmol/L (21-32); CHLORIDE 101 mmol/L (98-107); CREATININE 1.9 mg/dL (0.6-1.3); GLUCOSE 107 mg/dL (74-106); POTASSIUM 3.8 mmol/L (3.5-5.1); SODIUM SERUM 137 mmol/L (136-145); UREA NITROGEN, BLOOD 17 mg/dL (7-18)
[2021-04-16 02:09] LABS: ALANINE AMINOTRANSFERASE 19 U/L (12-78); ALBUMIN 3.8 g/dL (3.4-5.0); ALKALINE PHOSPHATASE 87 U/L (46-116); ASPARTATE AMINOTRANSFERASE 19 U/L (15-37); BILIRUBIN,DIRECT 0.2 mg/dL (0.0-0.2); BILIRUBIN,TOTAL 1.1 mg/dL (0.2-1.0); NT-PRO BNP 2095 pg/mL (0-125); TOTAL PROTEIN, SERUM 7.9 g/dL (6.4-8.2)
[2021-04-16 03:10] VITALS: BP 151/107
== END 2021-04-16 03:11 | disposition home or self-care (01) ==
LOC: ER 00:59
DX: R07.89 Other chest pain (principal); I10 Essential (primary) hypertension; J45.909 Unspecified asthma, uncomplicated; F41.9 Anxiety disorder, unspecified; F32.9 Major depressive disorder, single episode, unspecified; F17.200 Nicotine dependence, unspecified, uncomplicated; Z95.818 Presence of other cardiac implants and grafts; Z60.2 Problems related to living alone
CPT/HCPCS: 36415; 71045-TC; 80048-TC; 80076-TC; 83880; 84484-TC; 85025-TC; 85730-TC

== ENCOUNTER 2021-05-22 17:10 | Emergency (ER) | payer OTHER ==
[~2021-05-22] VITALS: Ht 154.9 cm; Wt 72.6 kg
[2021-05-22 17:30] VITALS: BP 115/77
--- NOTE | 2021-05-22 19:56 | NUR ---
Patient discharged to home in stable condition. Written and verbal after care instructions given. Patient verbalizes understanding of instruction. Pt ambulated out of ED. Refused to sign paperwork. RR even and unlabored.
== END 2021-05-22 19:57 | disposition home or self-care (01) ==
LOC: ER 18:51
DX: R42 Dizziness and giddiness (principal); I10 Essential (primary) hypertension; J45.909 Unspecified asthma, uncomplicated; F32.9 Major depressive disorder, single episode, unspecified; F41.9 Anxiety disorder, unspecified; F17.200 Nicotine dependence, unspecified, uncomplicated; Z98.890 Other specified postprocedural states; Z60.2 Problems related to living alone
CPT/HCPCS: 71045-TC

== ENCOUNTER 2023-10-24 00:46 | Emergency (ER) | payer OTHER ==
[~2023-10-24] VITALS: Ht 170.2 cm; Wt 54.4 kg
[2023-10-24 06:25] LABS: ADD URINE CULTURE NO; APPEARANCE,URINE CLEAR (CLEAR); BACTERIA,URINE Rare /HPF (None Seen); BILIRUBIN,URINE NEGATIVE (NEGATIVE); BLOOD, URINE 3+ Ery/uL (NEGATIVE); COLOR,URINE YELLOW (YELLOW); KETONES,URINE NEGATIVE (NEGATIVE); LEUKOCYTE ESTERASE ,URINE NEGATIVE (NEGATIVE); NITRITE, URINE NEGATIVE (NEGATIVE); PH,URINE 5.5 (5.0-8.0); PROTEIN,URINE 1+ mg/dl (NEGATIVE); SQUAMOUS EPITHELIAL CELL,UR Few /HPF (None Seen); UGLUCOSE NEGATIVE (NEGATIVE); UROBILINOGEN,URINE 0.2 EU/dL (0.2); WBC,URINE 0-2 /HPF (0-3)
[2023-10-24 06:36] LABS: BASOPHILS # (AUTO) 0.1 K/uL (0.0-0.2); BASOPHILS % (AUTO) 1.1 % (0.0-2.0); EOSINOPHILS # (AUTO) 0.4 K/uL (0.0-0.7); EOSINOPHILS % (AUTO) 6.3 % (0.0-6.0); HEMATOCRIT 42 % (39-51); LYMPHOCYTES # (AUTO) 0.6 K/uL (0.8-4.8); LYMPHOCYTES % (AUTO) 8.6 % (20.0-44.0); MEAN CORPUSCULAR HEMOGLOBIN 30 PG (26.0-33.0); MEAN CORPUSCULAR HGB CONC 33 g/dl (31.0-36.0); MEAN CORPUSCULAR VOLUME 90 fL (80-96); MONOCYTES % (AUTO) 14.6 % (2.0-12.0); NEUTROPHILS # (AUTO) 4.5 K/uL (1.8-8.9); NEUTROPHILS % (AUTO) 69.4 % (43.0-81.0); PLATELET COUNT (AUTO) 182 K/uL (150-450); RED BLOOD CELL COUNT(AUTO) 4.64 MIL/uL (4.5-6.0); RED CELL DISTRIBUTION WIDTH 13.4 % (11.5-15.0); WHITE BLOOD COUNT (AUTO) 6.5 K/uL (4.3-11.0)
[2023-10-24 06:40] LABS: BARBITURATE, URINE NEGATIVE (NEGATIVE); BENZODIAZEPINE, URINE NEGATIVE (NEGATIVE); CANNABINOID, URINE NEGATIVE (NEGATIVE); COCCAINE, URINE NEGATIVE (NEGATIVE); OPIATE, URINE NEGATIVE (NEGATIVE); PHENCYCLIDINE SCREEN,URINE NEGATIVE (NEGATIVE)
[2023-10-24 06:46] LABS: AMPHETAMINE, URINE POSITIVE (NEGATIVE)
[2023-10-24 06:54] LABS: CARBON DIOXIDE 21 mmol/L (21-32); CHLORIDE 100 mmol/L (98-107); CREATININE 2.3 mg/dL (0.6-1.3); GLUCOSE 107 mg/dL (74-106); POTASSIUM 3.9 mmol/L (3.5-5.1); SODIUM SERUM 132 mmol/L (136-145); UREA NITROGEN, BLOOD 42 mg/dL (7-18)
[2023-10-24 07:01] LABS: ALANINE AMINOTRANSFERASE 46 U/L (12-78); ALBUMIN 3.9 g/dL (3.4-5.0); ALCOHOL, BLOOD < 3 mg/dL (0-10); ALKALINE PHOSPHATASE 84 U/L (46-116); ASPARTATE AMINOTRANSFERASE 40 U/L (15-37); BILIRUBIN,DIRECT 0.1 mg/dL (0.0-0.2); BILIRUBIN,TOTAL 0.3 mg/dL (0.2-1.0); TOTAL PROTEIN, SERUM 8.4 g/dL (6.4-8.2)
[2023-10-24 07:04] LABS: ACETAMINOPHEN <10 ug/ml (10-30); SALICYLATE 1.6 mg/dL (2.8-20.0)
[2023-10-24] MEDS ORDERED: IV NS 0.9% 1,000 ML BAG IV ONE (07:30)
[2023-10-24 13:15] VITALS: BP 134/77; TEMP 98.2; O2SAT 99
== END 2023-10-24 13:16 | disposition home or self-care (01) ==
LOC: ER 00:50
DX: F32.A Depression, unspecified (principal); I12.9 Hypertensive chronic kidney disease with stage 1 through stage 4 chronic kidney disease, or unspecified chronic kidney disease; N18.9 Chronic kidney disease, unspecified; E86.0 Dehydration; F15.10 Other stimulant abuse, uncomplicated; J45.909 Unspecified asthma, uncomplicated; F41.9 Anxiety disorder, unspecified; F17.200 Nicotine dependence, unspecified, uncomplicated; Z20.822 Contact with and (suspected) exposure to COVID-19; Z98.890 Other specified postprocedural states; Z60.2 Problems related to living alone
CPT/HCPCS: 99283; 96360; 85025; 80048; 80076; 81001; 36415; 87426; 80143; 80320; 80307; J7030; A6403; C9803; G0480